=== PATIENT | male | born 1945 | race Caucasian/White ===

== ENCOUNTER 2017-10-07 20:51 | Observation (INO) | payer MEDICARE, BC ==
[2017-10-07] MEDS ORDERED: Sodium Chloride 0.9% 10 ML Syringe FLUSH PRN (21:11)
--- NOTE | 2017-10-07 21:21 | EDM.PDOC ---
ED HPI GENERAL MEDICAL PROBLEM - General Chief Complaint: General Stated Complaint: weak, left knee collapsed Time Seen by Provider: 10/07/17 21:02 Source of Information: Reports: Patient, Family History Limitations: Reports: No Limitations - History of Present Illness INITIAL COMMENTS - FREE TEXT/NARRATIVE: Patient reports falling at home. He states he has problems with his left knee and it collapsed on him. He did not hit his head or black out. He states he has been drinking today. He does have an extensive history of drinking 5 or more alcohol drinks. He prefers hard alcohol. Drinks whiskey, martinis, etc. Does not smoke or do drugs. He has a history of HTN and essential tremors. 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 Family is here with him. He reports no surgeries. Denies diabetes, cancer, copd or asthma, enlarged prostate. He denies chest pain, SOB, blood in urine or stool. He states he is having regular bowel and bladder movements. Denies headache, vision problems. Medical history obtained from [facility] records indicate Chronic sunus bradycardia, hypercholesterolemia, BPH, Q waves on EKG indicating prior PR, dmitriy with cpap use, thoracic aortic aneurysm, alcohol use, normal stress test. Medications include asa 81 mg, dyazide, 37.5/25 mg, vasotec 20 mg , hytrin 5 mg, mevacor 40 mg, mysoline 50 mg. Onset: Today, Sudden Location: Reports: Lower Extremity, Left Associated Symptoms: Reports: No Other Symptoms Left Knee Pain Score (Numeric/FACES): 3 - Related Data Allergies Allergy/AdvReac Type Severity Reaction Status Date / Time No Known Allergies Allergy Verified 10/07/17 20:58 Home Meds: Home Meds Aspirin [Halfprin] 81 mg PO DAILY 10/07/17 [History] Enalapril [Vasotec] 20 mg PO DAILY 10/07/17 [History] Lovastatin 1.5 tab PO BEDTIME 10/07/17 [History] Primidone 3 tab PO DAILY 10/07/17 [History] Terazosin [Hytrin] 1 cap PO BEDTIME 10/07/17 [History] Triamterene/Hydrochlorothiazid [Triamterene-HCTZ 37.5-25 MG] 1 tab PO DAILY [History] Social & Family History - Tobacco Use Smoking Status *Q: Never Smoker - Alcohol Use Days Per Week of Alcohol Use: 7 Number of Drinks Per Day: 7 Total Drinks Per Week: 49 - Recreational Drug Use Recreational Drug Use: No ED ROS GENERAL - Review of Systems Review Of Systems: See Below Constitutional: Reports: No Symptoms HEENT: Reports: No Symptoms Respiratory: Reports: No Symptoms Cardiovascular: Reports: No Symptoms Endocrine: Reports: No Symptoms GI/Abdominal: Reports: No Symptoms : Reports: No Symptoms Musculoskeletal: Reports: Other (weak left knee) Skin: Reports: No Symptoms Neurological: Reports: Weakness Psychiatric: Reports: No Symptoms Hematologic/Lymphatic: Reports: No Symptoms Immunologic: Reports: No Symptoms ED EXAM, GENERAL - Physical Exam Exam: See Below Exam Limited By: Intoxication General Appearance: Alert, WD/WN, No Apparent Distress Eye Exam: Bilateral Eye: EOMI, Normal Inspection, PERRL Ears: Normal TMs Nose: Normal Inspection, Normal Mucosa, No Blood Throat/Mouth: Normal Inspection, Normal Lips, Normal Teeth, Normal Gums, Normal Oropharynx, Normal Voice, No Airway Compromise Head: Atraumatic, Normocephalic Neck: Normal Inspection, Supple, Non-Tender, Full Range of Motion Respiratory/Chest: No Respiratory Distress, Lungs Clear, Normal Breath Sounds, No Accessory Muscle Use, Chest Non-Tender, Other (does have bradycardia which is normal for him, rates in the 40-50s) Cardiovascular: Normal Peripheral Pulses, Regular Rate, Rhythm, No Edema, No Gallop, No JVD, No Murmur, No Rub Peripheral Pulses: 2+: Posterior Tibial (L), Posterior Tibial (R), Dorsalis Pedis (L), Dorsalis Pedis (R) GI/Abdominal: Normal Bowel Sounds, Soft, Non-Tender, No Organomegaly, No Distention, No Abnormal Bruit, No Mass Extremities: Normal Inspection, Normal Range of Motion, Non-Tender, No Pedal Edema, Normal Capillary Refill, Other (varus, valgus, anterior drawer test negative) Neurological: Alert, Oriented, CN II-XII Intact, Normal Cognition, Normal Gait, Normal Reflexes, No Motor/Sensory Deficits Psychiatric: Normal Affect, Normal Mood Skin Exam: Warm, Dry, Intact, Normal Color, No Rash Lymphatic: No Adenopathy Course - Vital Signs Last Recorded V/S: Last Vital Signs Temp 36.5 C 10/07/17 22:05 Pulse 41 L 10/07/17 22:05 Resp 16 10/07/17 22:05 BP 169/100 H 10/07/17 22:05 Pulse Ox 96 10/07/17 22:05 - Orders/Labs/Meds Orders: Active Orders 24 hr Category Date Time Status Patient Status [ADT] Routine ADT 10/07/17 21:56 Active Knee 1V or 2V Lt [CR] Stat Exams 10/07/17 21:11 Taken Sodium Chloride 0.9% [Normal Saline] 1,000 ml Med 10/07/17 21:15 Active IV ASDIRECTED Sodium Chloride 0.9% [Saline Flush] Med 10/07/17 21:11 Active 10 ml FLUSH ASDIRECTED PRN Saline Lock Insert [OM.PC] Routine Oth 10/07/17 21:11 Ordered Medication Orders Sodium Chloride (Normal Saline) 1,000 mls @ 150 mls/hr IV ASDIRECTED YRIS Last Admin: 10/07/17 21:35 Dose: 150 mls/hr Sodium Chloride (Saline Flush) 10 ml FLUSH ASDIRECTED PRN PRN Reason: Keep Vein Open Labs: Laboratory Tests 10/07/17 10/07/17 Range/Units 21:33 21:33 WBC 5.9 (4.0-10.0) x10^3/uL RBC 4.01 L (4.5-6.0) x10^6/uL Hgb 13.7 L (14.0-18.0) g/dL Hct 40.1 (40.0-52.0) % MCV 100.0 H (78.0-93.0) fL MCH 34.2 H (26.0-32.0) pg MCHC 34.2 (32.0-36.0) g/dL RDW Coeff of James 12.4 (10.0-15.0) % Plt Count 212 (130-400) x10^3/uL Neut % (Auto) 57.2 (50.0-80.0) % Lymph % (Auto) 32.0 (25.0-50.0) % [place] % (Auto) 7.6 (2.0-11.0) % Eos % (Auto) 2.9 (0.0-4.0) % Baso % (Auto) 0.3 (0.2-1.2) % Sodium 139 (136-145) mmol/L Potassium 3.8 (3.5-5.1) mmol/L Chloride 104 (98-107) mmol/L Carbon Dioxide 24 (21-32) mmol/L Anion Gap 14.8 BUN 16 (7-18) mg/dL Creatinine 1.0 (0.70-1.30) mg/dL Est Cr Clr Drug Dosing 81.06 mL/min Estimated GFR (MDRD) > 60 Glucose 101 (74-106) mg/dL Calcium 8.3 L (8.5-10.1) mg/dL Corrected Calcium 8.94 (8.5-10.1) mg/dL Total Bilirubin 0.3 (0.2-1.0) mg/dL AST 20 (15-37) U/L ALT 21 (16-63) U/L Alkaline Phosphatase 87 (46-116) U/L Troponin I < 0.017 (<=0.056) ng/mL NT-Pro-B Natriuret Pep 84 (<=125) pg/mL Total Protein 7.2 (6.4-8.2) g/dL Albumin 3.2 L (3.4-5.0) g/dL Globulin 4.0 Albumin/Globulin Ratio 0.80 Amylase 47 (25-115) U/L Ethyl Alcohol 198 H (0-3) mg/dL Meds: Medications Generic Name Dose Route Start Last Admin Trade Name Freq PRN Reason Stop Dose Admin Sodium Chloride 1,000 mls @ 150 mls/hr 10/07/17 21:15 10/07/17 21:35 Normal Saline IV 150 mls/hr ASDIRECTED YRIS Administration Sodium Chloride 10 ml 10/07/17 21:11 Saline Flush FLUSH ASDIRECTED PRN Keep Vein Open - Re-Assessments/Exams Free Text/Narrative Re-Assessment/Exam: 10/07/17 23:34 Will admit to observation for detox and to determine his ambulate once sober. Departure - Departure Time of Disposition: 21:56 Disposition: Refer to Observation Condition: Good Clinical Impression: Alcohol intoxication, Knee buckling - Discharge Information - My Orders Last 24 Hours: My Active Orders 10/07/17 21:11 Knee 1V or 2V Lt [CR] Stat Sodium Chloride 0.9% [Saline Flush] 10 ml FLUSH ASDIRECTED PRN Saline Lock Insert [OM.PC] Routine 10/07/17 21:15 Sodium Chloride 0.9% [Normal Saline] 1,000 ml IV ASDIRECTED 10/07/17 21:56 Patient Status [ADT] Routine - Assessment/Plan Last 24 Hours: My Active Orders 10/07/17 21:11 Knee 1V or 2V Lt [CR] Stat Sodium Chloride 0.9% [Saline Flush] 10 ml FLUSH ASDIRECTED PRN Saline Lock Insert [OM.PC] Routine 10/07/17 21:15 Sodium Chloride 0.9% [Normal Saline] 1,000 ml IV ASDIRECTED 10/07/17 21:56 Patient Status [ADT] Routine
[2017-10-07] MEDS: Sodium Chloride 0.9% 1,000 ML IV SCH (21:35)
[2017-10-07 22:07] LABS: CHLORIDE,CL 104 mmol/L (98-107); SODIUM,NA 139 mmol/L (136-145)
[2017-10-08] MEDS: Sodium Chloride 0.9% 1,000 ML IV SCH ×2 (04:08→10:41)
[2017-10-08] MEDS: Ibuprofen 200 MG Tab PO PRN ×3 (06:29→20:36)
[2017-10-08] MEDS ORDERED: Morphine 4 MG/ML Syringe IVPUSH ONE (13:54)
[2017-10-08] MEDS: Acetaminophen/HYDROcodone 325-10 MG Tab PO PRN ×2 (14:09→22:10)
[2017-10-08] MEDS ORDERED: Non-Formulary Medication 1 Each (Triamterene/Hydrochlorothiazid [Triamterene-Hctz 37.5-25 PO SCH (21:15)
[2017-10-08] MEDS ORDERED: Primidone 50 MG Tab PO SCH (21:15)
[2017-10-08] MEDS ORDERED: [UNRECOGNIZED DRUG - OTHER] PO SCH (21:15)
[2017-10-08] MEDS: Aspirin 81 MG Tab.EC PO SCH (22:10)
[2017-10-09] MEDS: Acetaminophen/HYDROcodone 325-10 MG Tab PO PRN (08:00)
[2017-10-09] MEDS: Aspirin 81 MG Tab.EC PO SCH (08:00)
--- NOTE | 2017-10-09 08:33 | PCM.DCSUM1 ---
Discharge Summary - Hospital Course HPI Initial Comments: Patient admitted for alcohol intoxication and left knee pain and weakness. He had fallen and was unable to ambulate. This happened Monday night. - Discharge Data Discharge Date: 10/09/17 Discharge Disposition: Home, Self-Care 01 Condition: Good - Patient Summary/Data Recommended Follow-up Testing/Procedures: I do recommend follow up with your primary doctor as well as with orthopedic specialists to determine what is happening with your knee. Hospital Course: Patient admitted Monday night to observation. X-ray of left knee showed no fracture but did indicate an anterior fragment within the knee. He was unwilling to walk yesterday, so I did prescribe the use of an immobilizer for the left knee as well as some pain medications. - Patient Instructions Diet: Usual Diet as Tolerated Activity: Apply Ice, As Tolerated, Elevate Extremity Driving: May Drive Today Showering/Bathing: May Shower - Discharge Plan Home Medications: Home Meds Aspirin [Halfprin] 81 mg PO DAILY 10/07/17 [History] Enalapril [Vasotec] 20 mg PO DAILY 10/07/17 [History] [place] Seed [[place]] 300 mg PO DAILY 10/07/17 [History] Lovastatin 1.5 tab PO BEDTIME 10/07/17 [History] Primidone 3 tab PO DAILY 10/07/17 [History] Terazosin [Hytrin] 1 cap PO BEDTIME 10/07/17 [History] Triamterene/Hydrochlorothiazid [Triamterene-HCTZ 37.5-25 MG] 1 tab PO DAILY [History] Forms: ED Department Discharge Referrals: Wade Larkin MD [Primary Care Provider] - - Discharge Summary/Plan Comment DC Time >30 min.: Yes Discharge Summary/Plan Comment: Follow up with your primary as needed. Schedule an appointment with orthopedic for additional testing. Take the hydrocodone as needed for pain. Wear the immobilizer when you are walking. Utilize your walker as well. Call the hospital if you have any questions or concerns. - Patient Data Vitals - Most Recent: Last Vital Signs Temp 36.8 C 10/09/17 06:00 Pulse 50 L 10/09/17 06:00 Resp 19 10/09/17 06:00 BP 149/88 H 10/09/17 06:00 Pulse Ox 98 10/09/17 08:13 Weight - Most Recent: 131.542 kg I&O - Last 24 hours: Intake & Output 10/08/17 10/09/17 10/09/17 22:59 06:59 14:59 Intake Total 2940 680 360 Output Total 600 750 Balance 2340 -70 360 Med Orders - Current: Current Medications Hydrocodone Bitart/Acetaminophen ([place] 325-10 Mg) 1 tab PO Q4H PRN PRN Reason: Pain Last Admin: 10/09/17 08:00 Dose: 1 tab Aspirin (Halfprin) 81 mg PO DAILY YRIS Last Admin: 10/09/17 08:00 Dose: 81 mg Enalapril Maleate (Vasotec) 20 mg PO DAILY YRIS Ibuprofen (Motrin) 600 mg PO Q6H PRN PRN Reason: Pain/Fever Last Admin: 10/08/17 20:36 Dose: 600 mg Non-Formulary Medication ([place] Seed [[place]]) 300 mg PO DAILY YRIS Non-Formulary Medication (Lovastatin [Lovastatin]) 1.5 tab PO BEDTIME YRIS Non-Formulary Medication (Terazosin [Hytrin]) 1 cap PO BEDTIME YRIS Non-Formulary Medication (Triamterene/Hydrochlorothiazid [Triamterene-Hctz 37.5- 25 Mg]) 1 tab PO DAILY YRIS Primidone (Mysoline) mg PO DAILY YRIS Sodium Chloride (Saline Flush) 10 ml FLUSH ASDIRECTED PRN PRN Reason: Keep Vein Open Last Admin: 10/08/17 20:31 Dose: 10 ml Discontinued Medications Sodium Chloride (Normal Saline) 1,000 mls @ 150 mls/hr IV ASDIRECTED YRIS Last Admin: 10/08/17 10:41 Dose: 150 mls/hr Morphine Sulfate (Morphine) 4 mg IVPUSH ONETIME ONE Stop: 10/08/17 13:55 Last Admin: 10/08/17 14:05 Dose: 4 mg
[2017-10-09] MEDS ORDERED: TERAZOSIN PO SCH (20:00)
[2017-10-09] MEDS ORDERED: LOVASTATIN PO SCH (20:00)
== END 2017-10-09 09:35 | disposition home or self-care (01) ==
LOC: VM.ED 20:51 → VM.MS 21:56
PROVIDERS: ADMIT Nurse Practitioner Family; ATTEND Nurse Practitioner Family
DX: F10.129 Alcohol abuse with intoxication, unspecified (principal); M62.81 Muscle weakness (generalized); Z79.82 Long term (current) use of aspirin; Z79.899 Other long term (current) drug therapy
CPT/HCPCS: 36415; 73560; 80053; 82150; 83880; 84484; 85025; 93005; 94760; 96365; 99217; 99220; 99284; 99285; A9270; G0480; J2270; J7030; J7050

== ENCOUNTER 2017-10-14 12:26 | Emergency (ER) | payer MEDICARE, BC ==
--- NOTE | 2017-10-14 12:54 | EDM.PDOC ---
ED HPI GENERAL MEDICAL PROBLEM - General Chief Complaint: Genitourinary Problem Stated Complaint: URINARY PROBLEMS Time Seen by Provider: 10/14/17 12:38 Source of Information: Reports: Patient, Family History Limitations: Reports: No Limitations - History of Present Illness INITIAL COMMENTS - FREE TEXT/NARRATIVE: Patient was recently admitted last week with left knee weakness. On his discharge was seen in [place] at the Orthopedic walk in clinic and found to have a torn quadracept muscle. This was repaired on Monday. After discharge he was urinating without difficulty. However late yesterday he started to develop burning, frequency, lack of emptying when he does go. Slight fever. He is also slightly tachycardic, however he did have to expend a lot of energy to get to the ER due to his non weight bearing status on his left leg. Onset: Gradual Onset Date: 10/13/17 Duration: Getting Worse Severity: Moderate Associated Symptoms: Reports: Fever/Chills Left Knee Pain Score (Numeric/FACES): 3 - Related Data Allergies Allergy/AdvReac Type Severity Reaction Status Date / Time No Known Allergies Allergy Verified 10/14/17 13:02 Home Meds: Home Meds Aspirin [Halfprin] 81 mg PO DAILY 10/07/17 [History] Enalapril [Vasotec] 20 mg PO DAILY 10/07/17 [History] [place] Seed [[place]] 300 mg PO DAILY 10/07/17 [History] Lovastatin 1.5 tab PO BEDTIME 10/07/17 [History] Primidone 3 tab PO DAILY 10/07/17 [History] Terazosin [Hytrin] 1 cap PO BEDTIME 10/07/17 [History] Triamterene/Hydrochlorothiazid [Triamterene-HCTZ 37.5-25 MG] 1 tab PO DAILY [History] Lactulose 15 ml TID 10/14/17 [History] oxyCODONE 5 mg Q4H PRN 10/14/17 [History] traMADol HCl [Tramadol HCl] 100 mg Q6H 10/14/17 [History] Past Medical History HEENT History: Reports: Cataract, Impaired Vision Respiratory History: Reports: Sleep Apnea Psychiatric History: Reports: Addiction - Past Surgical History HEENT Surgical History: Reports: Tonsillectomy Cardiovascular Surgical History: Reports: Aneurysm Social & Family History - Family History Family Medical History: Noncontributory - Tobacco Use Smoking Status *Q: Never Smoker Second Hand Smoke Exposure: No - Caffeine Use Caffeine Use: Reports: None - Alcohol Use Days Per Week of Alcohol Use: 7 Number of Drinks Per Day: 7 Total Drinks Per Week: 49 - Recreational Drug Use Recreational Drug Use: No ED ROS GENERAL - Review of Systems Review Of Systems: See Below Constitutional: Reports: Fever HEENT: Reports: No Symptoms Respiratory: Reports: No Symptoms Cardiovascular: Reports: No Symptoms Endocrine: Reports: No Symptoms GI/Abdominal: Reports: No Symptoms : Reports: Dysuria, Frequency, Urinary Retention Musculoskeletal: Reports: Leg Pain (left knee) Skin: Reports: No Symptoms Neurological: Reports: No Symptoms Psychiatric: Reports: No Symptoms ED EXAM, RENAL/ - Physical Exam Exam: See Below Exam Limited By: No Limitations General Appearance: Alert, WD/WN, Mild Distress Eye Exam: Bilateral Eye: EOMI, Normal Inspection, PERRL Head: Atraumatic, Normocephalic Neck: Normal Inspection, Supple, Non-Tender, Full Range of Motion Respiratory/Chest: No Respiratory Distress, Lungs Clear, Normal Breath Sounds, No Accessory Muscle Use, Chest Non-Tender Cardiovascular: Normal Peripheral Pulses, Regular Rate, Rhythm, No Edema, No Gallop, No JVD, No Murmur, No Rub GI/Abdominal: Normal Bowel Sounds, Soft, Non-Tender, No Organomegaly, No Distention, No Abnormal Bruit, No Mass Extremities: Limited Range of Motion (left leg is wrapped in compression dressing) Neurological: Alert, Oriented, CN II-XII Intact, Normal Cognition, Normal Gait, Normal Reflexes, No Motor/Sensory Deficits Psychiatric: Normal Affect, Normal Mood Skin Exam: Warm, Dry, Intact, Normal Color, No Rash Lymphatic: No Adenopathy Course - Vital Signs Last Recorded V/S: Last Vital Signs Temp 37.9 C 10/14/17 12:26 Pulse 93 10/14/17 12:50 Resp 18 10/14/17 12:26 BP 156/89 H 10/14/17 12:50 Pulse Ox - Orders/Labs/Meds Orders: Active Orders 24 hr Category Date Time Status Day Catheter Insertion [Insert Urinary Catheter] [OM. Care 10/14/17 13:30 Ordered PC] Q24H Urinary Catheter Assessment [RC] ASDIRECTED Care 10/14/17 13:26 Active CULTURE BLOOD [BC] Stat Lab 10/14/17 13:01 Ordered CULTURE BLOOD [BC] Stat Lab 10/14/17 13:01 Ordered CULTURE URINE [RM] Stat Lab 10/14/17 12:39 Received UA W/MICROSCOPIC [URIN] Stat Lab 10/14/17 12:39 Ordered Blood Culture x2 Reflex Set [OM.PC] Stat Oth 10/14/17 13:01 Ordered Saline Lock Insert [OM.PC] Routine Oth 10/14/17 13:01 Ordered Labs: Laboratory Tests 10/14/17 10/14/17 10/14/17 Range/Units 12:39 13:05 13:05 WBC 9.1 (4.0-10.0) x10^3/uL RBC 3.65 L (4.5-6.0) x10^6/uL Hgb 12.5 L (14.0-18.0) g/dL Hct 35.9 L (40.0-52.0) % MCV 98.4 H (78.0-93.0) fL MCH 34.2 H (26.0-32.0) pg MCHC 34.8 (32.0-36.0) g/dL RDW Coeff of James 12.0 (10.0-15.0) % Plt Count 239 (130-400) x10^3/uL Neut % (Auto) 78.8 (50.0-80.0) % Lymph % (Auto) 8.0 L (25.0-50.0) % [place] % (Auto) 12.7 H (2.0-11.0) % Eos % (Auto) 0.3 (0.0-4.0) % Baso % (Auto) 0.2 (0.2-1.2) % Sodium 136 (136-145) mmol/L Potassium 3.9 (3.5-5.1) mmol/L Chloride 100 (98-107) mmol/L Carbon Dioxide 25 (21-32) mmol/L Anion Gap 14.9 (10-20) mmol/L BUN 19 H (7-18) mg/dL Creatinine 1.0 (0.70-1.30) mg/dL Est Cr Clr Drug Dosing 81.06 mL/min Estimated GFR (MDRD) > 60 Glucose 115 H (74-106) mg/dL Lactic Acid (0.4-2.0) mmol/L Uric Acid (3.5-7.2) mg/dL Calcium 8.6 (8.5-10.1) mg/dL Corrected Calcium 9.64 (8.5-10.1) mg/dL Total Bilirubin 0.7 (0.2-1.0) mg/dL AST 22 (15-37) U/L ALT 16 (16-63) U/L Alkaline Phosphatase 76 (46-116) U/L C-Reactive Protein 20.0 H (<=0.9) mg/dL Total Protein 7.0 (6.4-8.2) g/dL Albumin 2.7 L (3.4-5.0) g/dL Globulin 4.3 Albumin/Globulin Ratio 0.63 Urine Color Yellow (YELLOW) Urine Appearance Slightly cloudy H (CLEAR) Urine pH 7.0 (5.0-8.0) Ur Specific [place] 1.015 Urine Protein Negative (NEGATIVE) mg/dL Urine Glucose (UA) Negative (NEGATIVE) mg/dL Urine Ketones 15 H (NEGATIVE) mg/dL Urine Occult Blood Negative (NEGATIVE) Urine Nitrite Negative (NEGATIVE) Urine Bilirubin Negative (NEGATIVE) Urine Urobilinogen 1.0 (0.2) EU/dL Ur Leukocyte Esterase Negative (NEGATIVE) Urine RBC 0-5 (NOT SEEN) /HPF Urine WBC 0-5 (NOT SEEN) /HPF Ur Squamous Epith Cells Not seen (NEGATIVE) /HPF Urine Bacteria Rare (NEGATIVE) /HPF Urine Mucus Few H (NEGATIVE) /LPF 10/14/17 10/14/17 Range/Units 13:05 13:05 WBC (4.0-10.0) x10^3/uL RBC (4.5-6.0) x10^6/uL Hgb (14.0-18.0) g/dL Hct (40.0-52.0) % MCV (78.0-93.0) fL MCH (26.0-32.0) pg MCHC (32.0-36.0) g/dL RDW Coeff of James (10.0-15.0) % Plt Count (130-400) x10^3/uL Neut % (Auto) (50.0-80.0) % Lymph % (Auto) (25.0-50.0) % [place] % (Auto) (2.0-11.0) % Eos % (Auto) (0.0-4.0) % Baso % (Auto) (0.2-1.2) % Sodium (136-145) mmol/L Potassium (3.5-5.1) mmol/L Chloride (98-107) mmol/L Carbon Dioxide (21-32) mmol/L Anion Gap (10-20) mmol/L BUN (7-18) mg/dL Creatinine (0.70-1.30) mg/dL Est Cr Clr Drug Dosing mL/min Estimated GFR (MDRD) Glucose (74-106) mg/dL Lactic Acid 1.4 (0.4-2.0) mmol/L Uric Acid 5.8 (3.5-7.2) mg/dL Calcium (8.5-10.1) mg/dL Corrected Calcium (8.5-10.1) mg/dL Total Bilirubin (0.2-1.0) mg/dL AST (15-37) U/L ALT (16-63) U/L Alkaline Phosphatase (46-116) U/L C-Reactive Protein (<=0.9) mg/dL Total Protein (6.4-8.2) g/dL Albumin (3.4-5.0) g/dL Globulin Albumin/Globulin Ratio Urine Color (YELLOW) Urine Appearance (CLEAR) Urine pH (5.0-8.0) Ur Specific [place] Urine Protein (NEGATIVE) mg/dL Urine Glucose (UA) (NEGATIVE) mg/dL Urine Ketones (NEGATIVE) mg/dL Urine Occult Blood (NEGATIVE) Urine Nitrite (NEGATIVE) Urine Bilirubin (NEGATIVE) Urine Urobilinogen (0.2) EU/dL Ur Leukocyte Esterase (NEGATIVE) Urine RBC (NOT SEEN) /HPF Urine WBC (NOT SEEN) /HPF Ur Squamous Epith Cells (NEGATIVE) /HPF Urine Bacteria (NEGATIVE) /HPF Urine Mucus (NEGATIVE) /LPF Meds: Medications Discontinued Medications Generic Name Dose Route Start Last Admin Trade Name Freq PRN Reason Stop Dose Admin Ceftriaxone Sodium 2 gm 10/14/17 13:01 10/14/17 13:30 Rocephin IVPUSH 10/14/17 13:02 2 gm ONETIME ONE Administration Lactated Ringer's 1,000 mls @ 999 mls/hr 10/14/17 13:15 10/14/17 13:37 Ringers, Lactated IV 999 mls/hr ASDIRECTED YRIS Administration Sodium Chloride 10 ml 10/14/17 13:01 10/14/17 13:36 Saline Flush FLUSH 10 ml ASDIRECTED PRN Administration Keep Vein Open Trimethoprim/Sulfamethoxazole 1 packet 10/14/17 13:48 10/14/17 14:30 Take Home: Sulfameth/Trimet 800-160mg, 2 Pack PO 10/14/17 13:49 1 packet ONETIME ONE Administration - Re-Assessments/Exams Free Text/Narrative Re-Assessment/Exam: 10/14/17 13:21 Bladder was scanned for 949 mL. Catheter was placed and urine sample taken. Urine is largely negative, but with ketones in his urine, burning, frequency, blood, urinary retention will treat for UTI. Departure - Departure Time of Disposition: 14:46 Disposition: Home, Self-Care 01 Condition: Good Clinical Impression: UTI, Urinary tract infectious disease, Retention of urine - Discharge Information Instructions: Day Catheter Care, Adult, Urinary Tract Infection, Adult, Easy- to-Read Referrals: Wdae Larkin MD [Primary Care Provider] - Forms: ED Department Discharge Additional Instructions: Follow up in the clinic Monday to have the catheter removed. You did have over 900 mL in your bladder when it was scanned. I treating you for a UTI due to your symptoms. Will prescribe bactrim 160/800 mg twice a day for 7 days. Stay well hydrated and drink more fluids. If you have any additional questions or concerns, please call us. - Problem List & Annotations (1) Retention of urine SNOMED Code(s): 417661079 Code(s): R33.9 - RETENTION OF URINE, UNSPECIFIED Status: Acute Priority: Low (2) UTI, Urinary tract infectious disease SNOMED Code(s): 32851004 Code(s): N39.0 - URINARY TRACT INFECTION, SITE NOT SPECIFIED Status: Acute Priority: Low - Problem List Review Problem List Initiated/Reviewed/Updated: Yes - My Orders Last 24 Hours: My Active Orders 10/14/17 12:39 CULTURE URINE [RM] Stat UA W/MICROSCOPIC [URIN] Stat 10/14/17 13:01 CULTURE BLOOD [BC] Stat CULTURE BLOOD [BC] Stat Blood Culture x2 Reflex Set [OM.PC] Stat Saline Lock Insert [OM.PC] Routine 10/14/17 13:26 Urinary Catheter Assessment [RC] ASDIRECTED 10/14/17 13:30 Day Catheter Insertion [Insert Urinary Catheter] [OM.PC] Q24H - Assessment/Plan Last 24 Hours: My Active Orders 10/14/17 12:39 CULTURE URINE [RM] Stat UA W/MICROSCOPIC [URIN] Stat 10/14/17 13:01 CULTURE BLOOD [BC] Stat CULTURE BLOOD [BC] Stat Blood Culture x2 Reflex Set [OM.PC] Stat Saline Lock Insert [OM.PC] Routine 10/14/17 13:26 Urinary Catheter Assessment [RC] ASDIRECTED 10/14/17 13:30 Day Catheter Insertion [Insert Urinary Catheter] [OM.PC] Q24H Assessment:: urinary tract infection Plan: Follow up in the clinic Monday to have the catheter removed. You did have over 900 mL in your bladder when it was scanned. I treating you for a UTI due to your symptoms. Will prescribe bactrim 160/800 mg twice a day for 7 days. Stay well hydrated and drink more fluids. If you have any additional questions or concerns, please call us.
[2017-10-14] MEDS ORDERED: cefTRIAXone 2 GM Vial IVPUSH ONE (13:01)
[2017-10-14] MEDS ORDERED: Sodium Chloride 0.9% 10 ML Syringe FLUSH PRN (13:01)
[2017-10-14] MEDS ORDERED: Lactated Ringers 1,000 ML IV SCH (13:15)
[2017-10-14] MEDS ORDERED: Take Home: Sulfamethoxazole/Trimethoprim 800-160 MG Tab, 2 Tab Pack PO ONE (13:48)
[2017-10-14 13:57] LABS: CHLORIDE,CL 100 mmol/L (98-107); SODIUM,NA 136 mmol/L (136-145)
== END 2017-10-14 14:40 | disposition home or self-care (01) ==
LOC: VM.ED 12:26
DX: N39.0 Urinary tract infection, site not specified (principal); Z79.82 Long term (current) use of aspirin; Z79.899 Other long term (current) drug therapy
CPT/HCPCS: 36415; 51702; 51798; 80053; 81001; 83605; 84550; 85025; 86140; 87040; 87086; 96361; 96374; 99283; 99284-GF; A9270-GY; J0696; J7050; J7120

== ENCOUNTER 2017-10-17 07:53 | Emergency (ER) | payer MEDICARE, BC ==
--- NOTE | 2017-10-17 08:31 | EDM.PDOC ---
ED HPI GENERAL MEDICAL PROBLEM - General Chief Complaint: Genitourinary Problem Stated Complaint: unable to void Time Seen by Provider: 10/17/17 08:10 Source of Information: Reports: Patient, Family, RN, RN Notes Reviewed History Limitations: Reports: No Limitations - History of Present Illness INITIAL COMMENTS - FREE TEXT/NARRATIVE: Patient presents to the ED at [facility] complaining of urinary retention. Patient was originally seen in the ER last Monday and had a catheter placed. The patient was then seen by his PCP yesterday who felt it was ok to removed the catheter. The patient states this morning he has not voided since yesterday around 1pm. He is very uncomfortable and feels his bladder is full. Patient is currently taking Bactrim. Onset Date: 10/12/17 - Related Data Allergies Allergy/AdvReac Type Severity Reaction Status Date / Time No Known Allergies Allergy Verified 10/14/17 13:02 Home Meds: Home Meds Aspirin [Halfprin] 81 mg PO DAILY 10/07/17 [History] Enalapril [Vasotec] 20 mg PO DAILY 10/07/17 [History] Horse [place] Seed [Horse [place]] 300 mg PO DAILY 10/07/17 [History] Lovastatin 1.5 tab PO BEDTIME 10/07/17 [History] Primidone 3 tab PO DAILY 10/07/17 [History] Terazosin [Hytrin] 1 cap PO BEDTIME 10/07/17 [History] Triamterene/Hydrochlorothiazid [Triamterene-HCTZ 37.5-25 MG] 1 tab PO DAILY [History] Lactulose 15 ml TID 10/14/17 [History] oxyCODONE 5 mg Q4H PRN 10/14/17 [History] traMADol HCl [Tramadol HCl] 100 mg Q6H 10/14/17 [History] Past Medical History HEENT History: Reports: Cataract, Impaired Vision Respiratory History: Reports: Sleep Apnea Psychiatric History: Reports: Addiction - Past Surgical History HEENT Surgical History: Reports: Tonsillectomy Cardiovascular Surgical History: Reports: Aneurysm Social & Family History - Family History Family Medical History: Noncontributory - Tobacco Use Smoking Status *Q: Never Smoker Second Hand Smoke Exposure: No - Caffeine Use Caffeine Use: Reports: None - Alcohol Use Days Per Week of Alcohol Use: 7 Number of Drinks Per Day: 7 Total Drinks Per Week: 49 - Recreational Drug Use Recreational Drug Use: No ED ROS GENERAL - Review of Systems Review Of Systems: See Below Constitutional: Denies: Fever, Chills, Weakness Respiratory: Denies: Shortness of Breath, Cough Cardiovascular: Denies: Chest Pain, Palpitations GI/Abdominal: Denies: Abdominal Pain, Nausea, Vomiting : Reports: Pain, Urinary Retention Skin: Reports: No Symptoms Neurological: Reports: No Symptoms ED EXAM, RENAL/ - Physical Exam Exam: See Below Exam Limited By: No Limitations General Appearance: Alert, No Apparent Distress Respiratory/Chest: No Respiratory Distress, Lungs Clear, Normal Breath Sounds Cardiovascular: Normal Peripheral Pulses, Regular Rate, Rhythm GI/Abdominal: Normal Bowel Sounds, Soft, Non-Tender (Male) Exam: Deferred Neurological: Alert, Oriented Skin Exam: Warm, Dry, Intact, Normal Color Departure - Departure Time of Disposition: 08:31 Disposition: Home, Self-Care 01 Condition: Good Clinical Impression: Acute urinary retention, Encounter for Day catheter replacement - Discharge Information Instructions: Acute Urinary Retention, Male, Day Catheter Care, Adult Referrals: Wade Larkin MD [Primary Care Provider] - Forms: ED Department Discharge Additional Instructions: 1. Stay well hydrated and rest 2. May stop taking Lactulose and continue with MiraLax 3. Will leave catheter in place until seen by Dr. Larkin this 4. Call with any questions or concerns 5. Continue taking Bactrim for the full coarse - Problem List Review Problem List Initiated/Reviewed/Updated: Yes - Assessment/Plan Assessment:: Urinary Retention Plan: Day catheter was re-inserted today. Will leave in place until patient is seen by his PCP this . Also, patient is requesting to stop taking the Lactulose as his stools are very loose. He will continue MiraLax.
== END 2017-10-17 08:35 | disposition home or self-care (01) ==
LOC: VM.ED 07:53
DX: R33.9 Retention of urine, unspecified (principal); Z46.6 Encounter for fitting and adjustment of urinary device; Z79.82 Long term (current) use of aspirin; Z79.899 Other long term (current) drug therapy
CPT/HCPCS: 99283; 99283-GF

== ENCOUNTER 2017-10-30 10:45 | Emergency (ER) | payer MEDICARE, BC ==
[2017-10-30] MEDS ORDERED: Sodium Chloride 0.9% 10 ML Syringe FLUSH PRN (10:56)
[2017-10-30 12:22] LABS: CHLORIDE,CL 102 mmol/L (98-107); SODIUM,NA 137 mmol/L (136-145)
[2017-10-30] MEDS ORDERED: Iopamidol 612 MG/ML 100 ML Bottle IVPUSH ONE (12:40)
--- NOTE | 2017-10-30 12:47 | EDM.PDOC ---
ED HPI GENERAL MEDICAL PROBLEM - General Chief Complaint: Syncope Stated Complaint: ER Time Seen by Provider: 10/30/17 10:48 Source of Information: Reports: Patient, EMS Notes Reviewed, Family, RN, RN Notes Reviewed History Limitations: Reports: No Limitations - History of Present Illness INITIAL COMMENTS - FREE TEXT/NARRATIVE: Patient is brought to the emergency room at [facility] via EMS for syncopal symptoms. The patient had left lower extremity surgery a couple of weeks ago and had issues with urinary retention, therefore he has a indwelling catheter. According to the EMS crew the patient has been having issues over the past couple of days with dizziness, syncope, and low blood pressure. The patient was up using the restroom this morning and after his bowel movement he had a significant drop of his blood pressure. The patient was given 500 mL of normal saline in route to the emergency room the patient does not complain of any pain. The patient complains of shortness of breath. The patient denies any chest pain. The patient feels very anxious. The patient denies any focal neurological deficit. The patient does not have any abdominal pain. The patient does have a Dya catheter in place. The patient's is very concerned about the left lower extremity as it seems more swollen than usual after his surgery. The patient doesn't complain of any pain of the left lower extremity he states he has some calf pain when he ambulates. Otherwise he states the left lower extremity is comfortable. Onset: Gradual Duration: Waxing/Waning - Related Data Allergies Allergy/AdvReac Type Severity Reaction Status Date / Time No Known Allergies Allergy Verified 10/30/17 12:04 Home Meds: Home Meds Aspirin [Halfprin] 81 mg PO DAILY 10/07/17 [History] Enalapril [Vasotec] 20 mg PO DAILY 10/07/17 [History] Horse [place] Seed [Horse [place]] 300 mg PO DAILY 10/07/17 [History] Lovastatin 1.5 tab PO BEDTIME 10/07/17 [History] Primidone 3 tab PO DAILY 10/07/17 [History] Terazosin [Hytrin] 1 cap PO BEDTIME 10/07/17 [History] Triamterene/Hydrochlorothiazid [Triamterene-HCTZ 37.5-25 MG] 1 tab PO DAILY [History] Lactulose 15 ml TID 10/14/17 [History] oxyCODONE 5 mg Q4H PRN 10/14/17 [History] traMADol HCl [Tramadol HCl] 100 mg PO BID 10/14/17 [History] Sulfamethoxazole/Trimethoprim [Bactrim Ds Tablet] 1 each PO BID 10/17/17 [ History] Past Medical History HEENT History: Reports: Cataract, Impaired Vision Respiratory History: Reports: Sleep Apnea Psychiatric History: Reports: Addiction - Past Surgical History HEENT Surgical History: Reports: Tonsillectomy Cardiovascular Surgical History: Reports: Aneurysm Musculoskeletal Surgical History: Reports: Other (See Below) Other Musculoskeletal Surgeries/Procedures:: tendon repair to L knee Social & Family History - Family History Family Medical History: Noncontributory - Tobacco Use Smoking Status *Q: Unknown Ever Smoked Second Hand Smoke Exposure: No - Caffeine Use Caffeine Use: Reports: None - Alcohol Use Days Per Week of Alcohol Use: 7 Number of Drinks Per Day: 7 Total Drinks Per Week: 49 - Recreational Drug Use Recreational Drug Use: No ED ROS GENERAL - Review of Systems Review Of Systems: See Below Constitutional: Reports: Weakness, Fatigue. Denies: Fever, Chills Respiratory: Reports: Shortness of Breath. Denies: Wheezing, Cough Cardiovascular: Reports: Dyspnea on Exertion, Edema, Lightheadedness. Denies: Chest Pain GI/Abdominal: Denies: Abdominal Pain, Nausea, Vomiting Musculoskeletal: Reports: No Symptoms Skin: Reports: No Symptoms Neurological: Reports: Dizziness, Paresthesia. Denies: Headache, Numbness, Tingling - Physical Exam Exam: See Below Exam Limited By: No Limitations General Appearance: Alert, Anxious, Mild Distress, Obese Eye Exam: Bilateral Eye: Normal Inspection, PERRL Head Exam: Atraumatic, Normocephalic Neck: Supple Respiratory/Chest: No Respiratory Distress, Lungs Clear, Decreased Breath Sounds Cardiovascular: Tachycardia, Irregularly Irregular, Other (+3 bilateral lower extremity dependent pitting edema) GI/Abdominal: Normal Bowel Sounds, Soft, Non-Tender Neuro Exam (Abbreviated): Alert, Oriented Skin Exam: Warm, Dry, Intact, Normal Color EKG INTERPRETATION EKG Date: 10/30/17 Time: 10:59 Rhythm: A-Fib Rate (Beats/Min): 103 Louann: Normal P-Wave: Absent QRS: Normal ST-T: Normal QT: Normal CT/PQ Interval: Absent Comparison: Change From Previous EKG EKG Interpretation Comments: 1. Atrial Flutter/Tachycardia with RVR 2. IVMI, probably old 3. Anteroseptal UT of indeterminate age Course - Vital Signs Last Recorded V/S: Last Vital Signs Temp 35.9 C 10/30/17 10:45 Pulse 96 10/30/17 13:19 Resp 18 10/30/17 13:19 BP 124/90 10/30/17 13:19 Pulse Ox 94 L 10/30/17 13:19 - Orders/Labs/Meds Orders: Active Orders 24 hr Category Date Time Status EKG 12 Lead [EKG Documentation Completion] [RC] STAT Care 10/30/17 10:56 Active Chest 1V Frontal [CR] Stat Exams 10/30/17 10:58 Taken Chest PE [Ang Chest] [CT] Stat Exams 10/30/17 12:25 Taken Head wo Cont [CT] Stat Exams 10/30/17 10:57 Taken Heparin Sodium/0.45% NaCl [Heparin 25,000 Units in 1/2 Med 10/30/17 13:45 Ordered NS 500 ML] 25,000 units in 500 ml IV TITRATE Sodium Chloride 0.9% [Saline Flush] Med 10/30/17 10:56 Active 10 ml FLUSH ASDIRECTED PRN Peripheral IV Insertion Adult [OM.PC] Routine Oth 10/30/17 10:56 Ordered Medication Orders Heparin Sodium/Sodium Chloride (Heparin 25,000 Units In 1/2 Ns 500 Ml) 25,000 units in 500 mls @ 2,267.96 mls/hr IV TITRATE YRIS; Protocol Sodium Chloride (Saline Flush) 10 ml FLUSH ASDIRECTED PRN PRN Reason: Keep Vein Open Labs: Laboratory Tests 10/30/17 10/30/17 10/30/17 Range/Units 11:23 11:23 11:23 WBC 12.2 H (4.0-10.0) x10^3/uL RBC 3.78 L (4.5-6.0) x10^6/uL Hgb 12.6 L (14.0-18.0) g/dL Hct 37.6 L (40.0-52.0) % MCV 99.5 H (78.0-93.0) fL MCH 33.3 H (26.0-32.0) pg MCHC 33.5 (32.0-36.0) g/dL RDW Coeff of James 12.4 (10.0-15.0) % Plt Count 397 D (130-400) x10^3/uL Neut % (Auto) 87.2 H (50.0-80.0) % Lymph % (Auto) 6.7 L (25.0-50.0) % [place] % (Auto) 5.7 (2.0-11.0) % Eos % (Auto) 0.2 (0.0-4.0) % Baso % (Auto) 0.2 (0.2-1.2) % PT 9.3 L (9.6-11.4) SEC INR 0.9 L (2.0-3.5) D-Dimer, Quantitative 26.93 H (<=0.58) mg/LFEU POC ABG pH (7.35-7.45) POC ABG pCO2 (35-45) mmHG POC ABG pO2 (80-105) mmHG POC ABG HCO3 (22-26) mmol/L POC ABG Total CO2 (23-27) mmol/L POC ABG O2 Sat (95-98) % POC ABG Base Excess (-2-3) mmol/L POC FiO2 Sodium 137 (136-145) mmol/L Potassium 4.0 (3.5-5.1) mmol/L Chloride 102 (98-107) mmol/L Carbon Dioxide 21 (21-32) mmol/L Anion Gap 18.0 (10-20) mmol/L BUN 20 H (7-18) mg/dL Creatinine 1.2 (0.70-1.30) mg/dL Est Cr Clr Drug Dosing TNP Estimated GFR (MDRD) > 60 Glucose 162 H (74-106) mg/dL Lactic Acid (0.4-2.0) mmol/L Calcium 8.6 (8.5-10.1) mg/dL Corrected Calcium 9.56 (8.5-10.1) mg/dL Total Bilirubin 0.5 (0.2-1.0) mg/dL AST 25 (15-37) U/L ALT 29 (16-63) U/L Alkaline Phosphatase 101 (46-116) U/L Creatine Kinase 38 L (39-308) U/L Troponin I 0.156 H* (<=0.056) ng/mL NT-Pro-B Natriuret Pep 1318 H (<=125) pg/mL Total Protein 7.5 (6.4-8.2) g/dL Albumin 2.8 L (3.4-5.0) g/dL Globulin 4.7 Albumin/Globulin Ratio 0.60 POC Result Comm Ethyl Alcohol (0-3) mg/dL 10/30/17 10/30/17 10/30/17 Range/Units 11:23 11:23 11:36 WBC (4.0-10.0) x10^3/uL RBC (4.5-6.0) x10^6/uL Hgb (14.0-18.0) g/dL Hct (40.0-52.0) % MCV (78.0-93.0) fL MCH (26.0-32.0) pg MCHC (32.0-36.0) g/dL RDW Coeff of James (10.0-15.0) % Plt Count (130-400) x10^3/uL Neut % (Auto) (50.0-80.0) % Lymph % (Auto) (25.0-50.0) % [place] % (Auto) (2.0-11.0) % Eos % (Auto) (0.0-4.0) % Baso % (Auto) (0.2-1.2) % PT (9.6-11.4) SEC INR (2.0-3.5) D-Dimer, Quantitative (<=0.58) mg/LFEU POC ABG pH 7.420 (7.35-7.45) POC ABG pCO2 29 L (35-45) mmHG POC ABG pO2 57 L* (80-105) mmHG POC ABG HCO3 19 L (22-26) mmol/L POC ABG Total CO2 20 L (23-27) mmol/L POC ABG O2 Sat 90 L (95-98) % POC ABG Base Excess -6 L (-2-3) mmol/L POC FiO2 0.32 Sodium (136-145) mmol/L Potassium (3.5-5.1) mmol/L Chloride (98-107) mmol/L Carbon Dioxide (21-32) mmol/L Anion Gap (10-20) mmol/L BUN (7-18) mg/dL Creatinine (0.70-1.30) mg/dL Est Cr Clr Drug Dosing Estimated GFR (MDRD) Glucose (74-106) mg/dL Lactic Acid 3.2 H* (0.4-2.0) mmol/L Calcium (8.5-10.1) mg/dL Corrected Calcium (8.5-10.1) mg/dL Total Bilirubin (0.2-1.0) mg/dL AST (15-37) U/L ALT (16-63) U/L Alkaline Phosphatase (46-116) U/L Creatine Kinase (39-308) U/L Troponin I (<=0.056) ng/mL NT-Pro-B Natriuret Pep (<=125) pg/mL Total Protein (6.4-8.2) g/dL Albumin (3.4-5.0) g/dL Globulin Albumin/Globulin Ratio POC Result Comm Called critical res Ethyl Alcohol < 3 (0-3) mg/dL Meds: Medications Generic Name Dose Route Start Last Admin Trade Name Freq PRN Reason Stop Dose Admin Heparin Sodium/Sodium Chloride 25,000 units in 500 mls @ 2,267.96 mls/hr 10/30 13:45 Heparin 25,000 Units In 1/2 Ns 500 Ml IV TITRATE YRIS Protocol 1,000 UNITS/KG/HR Sodium Chloride 10 ml 10/30/17 10:56 Saline Flush FLUSH ASDIRECTED PRN Keep Vein Open Discontinued Medications Generic Name Dose Route Start Last Admin Trade Name Freq PRN Reason Stop Dose Admin Heparin Sodium (Porcine) 4,000 units 10/30/17 13:43 Heparin Sodium IVPUSH 10/30/17 13:44 ONETIME ONE Iopamidol 100 ml 10/30/17 12:40 10/30/17 13:14 Isovue-300 (61%) IVPUSH 10/30/17 12:41 100 ml ONETIME ONE Administration - Radiology Interpretation Free Text/Narrative:: CXR: No acute process CT Head: No acute findings; mild generalized atrophy CT Ang Chest: Large bilateral central pulmonary emboli with evidence of right heart strain See scanned report in EMR CT Results Date: 10/30/17 CT Results Time: 13:31 Departure - Departure Time of Disposition: 14:05 Disposition: DC/Tfer to Acute Hospital 02 Condition: Good Clinical Impression: Bilateral pulmonary embolism, Hypoxia, Shortness of breath - Discharge Information Forms: Interfacility Transfer [facility] ED Communication - ED Communication Date/Time Date: 10/30/17 Time Called: 13:35 - Discussed Case With (1) Discussed Case With (1): Admitting Provider (Dr. Mccall, ) - Conversation Summary Admitting Provider Agreed to Patient's Admission: Yes Patient Aware of Amendments fo Care Plan: Yes Patient's POA/Guardian Aware of Amendments to Care Plan: Yes - Problem List Review Problem List Initiated/Reviewed/Updated: Yes - My Orders Last 24 Hours: My Active Orders 10/30/17 10:56 EKG 12 Lead [EKG Documentation Completion] [RC] STAT Sodium Chloride 0.9% [Saline Flush] 10 ml FLUSH ASDIRECTED PRN Peripheral IV Insertion Adult [OM.PC] Routine 10/30/17 10:57 Head wo Cont [CT] Stat 10/30/17 10:58 Chest 1V Frontal [CR] Stat 10/30/17 12:25 Chest PE [Ang Chest] [CT] Stat 10/30/17 13:45 Heparin Sodium/0.45% NaCl [Heparin 25,000 Units in 1/2 NS 500 ML] 25,000 units in 500 ml IV TITRATE - Assessment/Plan Last 24 Hours: My Active Orders 10/30/17 10:56 EKG 12 Lead [EKG Documentation Completion] [RC] STAT Sodium Chloride 0.9% [Saline Flush] 10 ml FLUSH ASDIRECTED PRN Peripheral IV Insertion Adult [OM.PC] Routine 10/30/17 10:57 Head wo Cont [CT] Stat 10/30/17 10:58 Chest 1V Frontal [CR] Stat 10/30/17 12:25 Chest PE [Ang Chest] [CT] Stat 10/30/17 13:45 Heparin Sodium/0.45% NaCl [Heparin 25,000 Units in 1/2 NS 500 ML] 25,000 units in 500 ml IV TITRATE Assessment:: Bilateral PE Hypoxia SOB Hypotension Plan: Case discussed with Dr. Mccall, Patient accepted in transfer. Report given. Patient will be sent to [facility] via ALS ground. Patient and family agree with POC.
[2017-10-30] MEDS ORDERED: Heparin Sodium 5,000 Units/ML Vial IVPUSH ONE (13:43)
[2017-10-30] MEDS ORDERED: Heparin Sodium/0.45% NaCl 25,000 UNITS/500 ML BAG IV SCH ×2 (13:45→14:23)
== END 2017-10-30 15:45 | disposition short-term general hospital (02) ==
LOC: VM.ED 10:45
DX: I26.99 Other pulmonary embolism without acute cor pulmonale (principal); R09.02 Hypoxemia; I95.9 Hypotension, unspecified; R55 Syncope and collapse; Z79.82 Long term (current) use of aspirin; Z79.899 Other long term (current) drug therapy
CPT/HCPCS: 36415; 36600; 70450; 71045; 71275; 80053; 82550; 82803; 83605; 83880; 84484; 85025; 85379; 85610; 93005; 96365; 99285; G0480; J1644; Q9967; 93010; 99284-GF

== ENCOUNTER 2017-11-06 13:27 | Inpatient (IN) | payer MEDICARE, BC ==
[2017-11-06] MEDS ORDERED: Acetaminophen 325 MG Tab PO SCH (18:00)
[2017-11-06] MEDS: LOVASTATIN 40 MG PO SCH ×2 (19:57→20:04)
[2017-11-06] MEDS: Doxazosin 4 MG Tab PO SCH (19:58)
[2017-11-06] MEDS: Enoxaparin 120 MG/0.8 ML Syringe SUBCUT SCH (19:58)
[2017-11-06] MEDS: Acetaminophen 325 MG Tab PO SCH (19:59)
[2017-11-06] MEDS: Melatonin 3 MG Tab PO SCH (19:59)
--- NOTE | 2017-11-06 20:42 | PCM.HP ---
H&P History of Present Illness - General Date of Service: 11/06/17 Admit Problem/Dx: Admission Diagnosis/Problem Admission Diagnosis/Problem PE, Pulmonary embolism - History of Present Illness Initial Comments - Free Text/Narative: HPI: He is admitted to Swing [facility] following submassive pulmonary embolus. On 10/11/17 he suffered a sudden spontaneous rupture of his L quadriceps tendon, and had surgical repair. His postop course was first complicated by acute urinary retention about 2 days after the surgery and he had to have a Day catheter for a while. On 10/30/17, about 3 weeks postop, he became suddenly dyspneic, hypotensive, lightheaded and was seen in ER, CT showed large bilateral pulmonary emboli and he was transferred emergently to . Because of his hypoxia and dyspnea, he had an immediate interventional radiology consult , and with pulmonary artery catheterization and thrombolytic Rx he remembers starting to breathe quite normally almost right away. He did have another episode of acute urinary retention and again has an indwelling Day catheter. He is no longer on oxygen, is on Lovenox and starting Coumadin, but needs Swing Bed because he is still not ambulating well, still has quite a swollen L leg, has been this way even before his tendon surgery. He has also been on CPAP for obstructive sleep apnea for a long time. He does have morbid obesity. After 1 week in hospital he is T/F to Swing Bed. At the time of his first episode of acute urinary retention there was an attempt to increase Hytrin since he was already on that for hypertension, but he became quite hypotensive. Medical History: -Rx for many years for hypertension, including Rx with Hytrin because of urinary hesitancy -Rx for years with propranolol for essential tremor, until it was D/Cd 07/11 -07/11 had stress test for question of unexplained Q waves on EKG, negative; denies any Hx of coronary disease -10/11 acute urinary retention, see above Surgical History: -Tonsillectomy -Appendectomy -Colonoscopy 2, negative -Nasal polypectomy -L quadriceps tendon repair/ Family History: -Father had Hodgkins lymphoma, age 84 -Brother had congenital heart disease -Grandmother had essential tremor Social History: , but has a domestic partner, lived in and managed the [place] 83, 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 Moved back to 05/10 to be nearer his 2 daughters who live here. Primary Care from [facility]. Systems Review: Constitutional: Except for morbid obesity and hypertension, felt he was in fairly good health until his sudden quadriceps rupture in 10/11. ENT: Hearing might be slightly decreased but does not wear hearing aids, has his own teeth Eyes: He wears glasses, has been told he might have early cataracts Respiratory: Never a smoker, denies any lung disease until the pulmonary embolus Cardiac: Denies any CAD, says he passed his stress test which was done because of Q waves, though he doesnt remember any ischemic event or chest pain GI: His 2 colonoscopies were negative, denies any problems Endocrine: He is on Mevacor for hyperlipidemia, has not had elevated blood sugars : See HPI Musculoskeletal: Some mild generalized arthritis Skin: Has precancerous keratoses on his scalp but never any actual skin cancer Allergies: No seasonal allergies Neurologic: Has essential tremor, as did his grandmother, was on propranolol for it but is not any longer; no trouble with headaches or syncope, except was lightheaded recently when he was hypotensive Heme: Says he has bruised easily for a long time, now is on Coumadin for the PE Psych: Denies any depression or other mood problems. Physical Exam: General: Mildly hypertensive, morbid obesity; alert, congenial and answers questions appropriately ENT: No cerumen, hearing seems OK; teeth in good repair Eyes: Pupils equal Neck: No masses palpable, no bruit heard Cardiac: Heart sounds normal and regular, no murmur; unable to feel pulses in feet because of edema, 2+ L, 1+ R Pulmonary: Not on oxygen, does not appear dyspneic, lung sounds clear Abdominal: No palpable tenderness or organomegaly or masses : Day catheter is draining clear urine Musculoskeletal: Joints appear generally normal; he has a hinged knee brace on L Neurologic: Facial muscles, speech normal; did not test fur joiner strength. DTRs; his tremor is not noticeable at rest Skin: Did not examine the AKs on his scalp, no other gross abnormalities Psych: Affect normal Impression: -Starting Coumadin anticoagulation for bilateral pulmonary embolus 3 weeks postop L quadriceps tendon repair for spontaneous rupture -Hypertension, BP mildly elevated now -Hyperlipidemia, on Mevacor -Morbid obesity Plan: -He has Orthopedic F/U on 11/21/17 and Urology F/U on 12/04/17 -Lovenox and Coumadin as ordered, presume Coumadin clinic will be managing his INRs -[facility] Will follow him in Swing Bed Bilateral Feet Pain Score (Numeric/FACES): 5 - Related Data Allergies/Adverse Reactions: Allergies Allergy/AdvReac Type Severity Reaction Status Date / Time No Known Allergies Allergy Verified 10/30/17 12:04 Home Medications: Home Meds Enalapril [Vasotec] 5 mg PO DAILY 10/07/17 [History] Lovastatin 60 mg PO BEDTIME 10/07/17 [History] Terazosin [Hytrin] 5 mg PO BEDTIME 10/07/17 [History] Acetaminophen [Pain Relief] 650 mg PO Q6H 11/06/17 [History] Enoxaparin Sodium [Lovenox] 120 mg SQ BID 11/06/17 [History] Melatonin 6 mg PO BEDTIME 11/06/17 [History] Polyethylene Glycol [Polyox Wsr-301] 1 gm PO DAILY 11/06/17 [History] Primidone [Mysoline] 150 mg PO DAILY 11/06/17 [History] Sennosides/Docusate Sodium [Senna-Docusate Sodium] 2 each PO BID PRN 11/06/17 [ History] Tamsulosin [Tamsulosin 24 Hr] 0.4 mg PO DAILY 11/06/17 [History] Warfarin [Coumadin] 5.25 mg PO DAILY 11/06/17 [History] Past Medical History HEENT History: Reports: Cataract, Impaired Vision Cardiovascular History: Reports: Hypertension Respiratory History: Reports: PE, Sleep Apnea Psychiatric History: Reports: Addiction - Past Surgical History HEENT Surgical History: Reports: Tonsillectomy Cardiovascular Surgical History: Reports: Aneurysm Musculoskeletal Surgical History: Reports: Other (See Below) Other Musculoskeletal Surgeries/Procedures:: left quad repair, tendon repair to L knee Social & Family History - Family History Family Medical History: Noncontributory - Tobacco Use Smoking Status *Q: Never Smoker Second Hand Smoke Exposure: No - Caffeine Use Caffeine Use: Reports: Coffee - Alcohol Use Days Per Week of Alcohol Use: 0 - Recreational Drug Use Recreational Drug Use: No H&P Review of Systems - Review of Systems: Review Of Systems: See Below Exam - Exam Exam: See Below - Vital Signs Vital Signs: Last Vital Signs Temp 36.6 C 11/06/17 17:08 Pulse 55 L 11/06/17 17:08 Resp 16 11/06/17 17:08 BP 127/71 11/06/17 19:58 Pulse Ox 96 11/06/17 17:08 Weight: 131.542 kg Problem List Initiated/Reviewed/Updated: Yes Orders Last 24hrs: Active Orders 24 hr Category Date Time Status Admission Status [Patient Status] [ADT] Routine ADT 11/06/17 15:00 Active Patient Status [ADT] Routine ADT 11/06/17 17:25 Active CPAP Adult [RT BiPAP/CPAP] [RC] 22 Care 11/06/17 17:07 Active Communication Order [RC] 08,20 Care 11/06/17 18:29 Active Communication Order [RC] Q8H Care 11/06/17 17:00 Active Oxygen Therapy [RC] .PRN Care 11/06/17 17:25 Active Vital Signs [RC] 06,18 Care 11/06/17 17:25 Active OT Evaluation and Treatment [CONS] Routine Cons 11/06/17 15:00 Active PT Evaluation and Treatment [CONS] Routine Cons 11/06/17 15:00 Active CULTURE MRSA SURVEY [RM] Routine Lab 11/06/17 17:20 Received Acetaminophen [Tylenol] Med 11/06/17 20:00 Active 650 mg PO Q6H Docusate Sodium/Sennosides [Senna Plus] Med 11/06/17 17:34 Active 2 tab PO BID PRN Doxazosin [Cardura] Med 11/06/17 20:00 Active 4 mg PO BEDTIME Enalapril [Vasotec] Med 11/07/17 08:00 Active 5 mg PO DAILY Enoxaparin [Lovenox] Med 11/06/17 20:00 Active 120 mg SUBCUT BID Melatonin Med 11/06/17 20:00 Active 6 mg PO BEDTIME Patient's Own Medication [Ptom] Med 11/06/17 20:00 Active 0 each PO BEDTIME Polyethylene Glycol 3350 [MiraLAX] Med 11/07/17 08:00 Active 17 gm PO DAILY Primidone [Mysoline] Med 11/07/17 08:00 Active 150 mg PO DAILY Tamsulosin [Flomax] Med 11/07/17 08:00 Active 0.4 mg PO DAILY Elastic Wrap [OM.PC] Routine Oth 11/06/17 17:04 Ordered Resuscitation Status Routine Resus Stat 11/06/17 17:25 Ordered Medication Orders Acetaminophen (Tylenol) 650 mg PO Q6H [facility] Last Admin: 11/06/17 19:59 Dose: 650 mg Doxazosin Mesylate (Cardura) 4 mg PO BEDTIME [facility] Last Admin: 11/06/17 19:58 Dose: 4 mg Enalapril Maleate (Vasotec) 5 mg PO DAILY [facility] Enoxaparin Sodium (Lovenox) 120 mg SUBCUT BID [facility] Last Admin: 11/06/17 19:58 Dose: 120 mg Melatonin (Melatonin) 6 mg PO BEDTIME [facility] Last Admin: 11/06/17 19:59 Dose: 6 mg PtomLovastatin (40 Mg Tab) 0 each PO BEDTIME [facility] Last Admin: 11/06/17 20:04 Dose: 1.5 each Polyethylene Glycol (Miralax) 17 gm PO DAILY [facility] Primidone (Mysoline) 150 mg PO DAILY [facility] Senna/Docusate Sodium (Senna Plus) 2 tab PO BID PRN PRN Reason: Constipation Tamsulosin HCl (Flomax) 0.4 mg PO DAILY [facility]
[2017-11-07] MEDS: Acetaminophen 325 MG Tab PO SCH ×4 (01:48→20:33)
[2017-11-07] MEDS: Primidone 50 MG Tab PO SCH (08:23)
[2017-11-07] MEDS: Enoxaparin 120 MG/0.8 ML Syringe SUBCUT SCH ×2 (08:24→20:34)
[2017-11-07] MEDS: Enalapril 5 MG Tab PO SCH (08:24)
[2017-11-07] MEDS: Tamsulosin 0.4 MG Cap.ER PO SCH (08:25)
[2017-11-07] MEDS: Polyethylene Glycol 3350 Powder 17 GM Packet PO SCH (08:25)
[2017-11-07] MEDS ORDERED: Warfarin 5 MG Tab PO SCH (16:00)
[2017-11-07] MEDS ORDERED: LOVASTATIN 40 MG PO SCH (20:00)
[2017-11-07] MEDS: Melatonin 3 MG Tab PO SCH (20:32)
[2017-11-07] MEDS: Doxazosin 4 MG Tab PO SCH (20:32)
[2017-11-08] MEDS: Acetaminophen 325 MG Tab PO SCH ×2 (02:09→07:35)
[2017-11-08 07:08] LABS: CHLORIDE,CL 106 mmol/L (98-107); SODIUM,NA 140 mmol/L (136-145)
[2017-11-08] MEDS: Tamsulosin 0.4 MG Cap.ER PO SCH (07:35)
[2017-11-08] MEDS: Enoxaparin 120 MG/0.8 ML Syringe SUBCUT SCH (07:36)
[2017-11-08] MEDS: Primidone 50 MG Tab PO SCH (07:36)
[2017-11-08] MEDS: Enalapril 5 MG Tab PO SCH (07:36)
[2017-11-08] MEDS: Polyethylene Glycol 3350 Powder 17 GM Packet PO SCH (07:36)
--- NOTE | 2017-11-08 09:37 | PCM.DCSUM1 ---
Discharge Summary - Hospital Course Free Text/Narrative:: Patient was mid two days ago to ensuring adequate bridging anticoagulation with Lovenox to Coumadin. He's had two therapeutic INRs now. No side effects from medicine. Hospital is in [place] for large bilateral PE with IR thrombolysis. Currently asymptomatic in this regard. Blood pressure vital signs are stable, he is running a bit bradycardic. They decreased his antihypertensives there. Blood pressure stable here on the lower dose. His past alcohol use may have been making this higher but his recent PE made improved bedmaking artificially lowers well. He'll see me for a wound week or two and recheck, we'll recheck his chemistry hemoglobin and probably EKG than for any bradycardia or tachycardia. He'll do a minimum three months of Coumadin for his PE, possibly definite given the large size although it was clearly provoked by his recent knee surgery and immobilization. If he were to stay in [place] this would be a second recent to stay on indefinite therapy but this may be provoked as well. If he develops more of a tachybradycardia issue he may need to see EP but he is currently asymptomatic in this regard. He'll follow-up with [facility] and two weeks as scheduled for recheck of his knee. Home health is can continue with physical therapy currently is not really doing any weightbearing per [facility] recommendations. He'll follow-up with urology for his urinary retention NOS. They switched him to Flomax from his previous terazosin. He'll leave the catheter in for about a month total until he sees them in about three weeks as well. - Discharge Data Discharge Date: 11/08/17 Discharge Disposition: Home, Self-Care 01 Condition: Good - Patient Summary/Data Consults: Consultations 11/06/17 15:00 OT Evaluation and Treatment [CONS] Routine PT Evaluation and Treatment [CONS] Routine - Discharge Plan Home Medications: Home Meds Lovastatin 60 mg PO BEDTIME 10/07/17 [History] Acetaminophen [Pain Relief] 650 mg PO Q6H 11/06/17 [History] Melatonin 6 mg PO BEDTIME 11/06/17 [History] Polyethylene Glycol [Polyox Wsr-301] 1 gm PO DAILY 11/06/17 [History] Primidone [Mysoline] 150 mg PO DAILY 11/06/17 [History] Sennosides/Docusate Sodium [Senna-Docusate Sodium] 2 each PO BID PRN 11/06/17 [ History] Tamsulosin [Flomax] 0.4 mg PO DAILY 11/06/17 [History] Warfarin [Coumadin] 5.25 mg PO DAILY 11/06/17 [History] Enalapril [Vasotec] 5 mg PO DAILY tablet 11/08/17 [Rx] Lovastatin 40mg (Own Supply) 0 mg PO BEDTIME 11/08/17 [Rx] Melatonin 6 mg PO BEDTIME tablet 11/08/17 [Rx] Warfarin [Coumadin] 10 mg PO DAILY@1600 tablet 11/08/17 [Rx] Referrals: Wade Larkin MD [Primary Care Provider] - 11/15/17 8:45 am (You have a follow up appt. with Dr. Judit Larkin on November 15, 2017 at 8:45----[facility]) - Patient Data Vitals - Most Recent: Last Vital Signs Temp 36.3 C 11/08/17 06:00 Pulse 52 L 11/08/17 06:00 Resp 18 11/08/17 06:00 BP 129/69 11/08/17 06:00 Pulse Ox 95 11/08/17 06:00 Weight - Most Recent: 131.542 kg I&O - Last 24 hours: Intake & Output 11/07/17 11/08/17 11/08/17 22:59 06:59 14:59 Intake Total 540 240 Output Total 1425 Balance -885 240 Lab Results - Last 24 hrs: Laboratory Results - last 24 hr 11/07/17 11/07/17 11/08/17 Range/Units 09:35 09:35 06:17 WBC 4.2 (4.0-10.0) x10^3/uL RBC 3.51 L (4.5-6.0) x10^6/uL Hgb 11.6 L (14.0-18.0) g/dL Hct 35.5 L (40.0-52.0) % MCV 101.1 H (78.0-93.0) fL MCH 33.0 H (26.0-32.0) pg MCHC 32.7 (32.0-36.0) g/dL RDW Coeff of James 12.6 (10.0-15.0) % Plt Count 304 D (130-400) x10^3/uL PT 23.4 H D 25.8 H (9.6-11.4) SEC INR 2.3 2.5 (2.0-3.5) Sodium (136-145) mmol/L Potassium (3.5-5.1) mmol/L Chloride (98-107) mmol/L Carbon Dioxide (21-32) mmol/L Anion Gap (10-20) mmol/L BUN (7-18) mg/dL Creatinine (0.70-1.30) mg/dL Est Cr Clr Drug Dosing mL/min Estimated GFR (MDRD) Glucose (74-106) mg/dL Calcium (8.5-10.1) mg/dL 11/08/17 Range/Units 06:17 WBC (4.0-10.0) x10^3/uL RBC (4.5-6.0) x10^6/uL Hgb (14.0-18.0) g/dL Hct (40.0-52.0) % MCV (78.0-93.0) fL MCH (26.0-32.0) pg MCHC (32.0-36.0) g/dL RDW Coeff of James (10.0-15.0) % Plt Count (130-400) x10^3/uL PT (9.6-11.4) SEC INR (2.0-3.5) Sodium 140 (136-145) mmol/L Potassium 4.1 (3.5-5.1) mmol/L Chloride 106 (98-107) mmol/L Carbon Dioxide 26 (21-32) mmol/L Anion Gap 12.1 (10-20) mmol/L BUN 16 (7-18) mg/dL Creatinine 1.0 (0.70-1.30) mg/dL Est Cr Clr Drug Dosing 81.06 mL/min Estimated GFR (MDRD) > 60 Glucose 97 (74-106) mg/dL Calcium 8.5 (8.5-10.1) mg/dL LAYO Results - Last 24 hrs: Microbiology 11/06/17 17:20 MRSA Surveillance Culture - Final Nares, Unspecified NO MRSA ISOLATED Med Orders - Current: Current Medications Acetaminophen (Tylenol) 650 mg PO Q6H [facility] Last Admin: 11/08/17 07:35 Dose: 650 mg Doxazosin Mesylate (Cardura) 4 mg PO BEDTIME [facility] Last Admin: 11/07/17 20:32 Dose: 4 mg Enalapril Maleate (Vasotec) 5 mg PO DAILY [facility] Last Admin: 11/08/17 07:36 Dose: 5 mg Melatonin (Melatonin) 6 mg PO BEDTIME [facility] Last Admin: 11/07/17 20:32 Dose: 6 mg Lovastatin 40mg (Own (Supply)) 0 mg PO BEDTIME [facility] Last Admin: 11/07/17 20:35 Dose: 40 mg Polyethylene Glycol (Miralax) 17 gm PO DAILY [facility] Last Admin: 11/08/17 07:36 Dose: 17 gm Primidone (Mysoline) 150 mg PO DAILY [facility] Last Admin: 11/08/17 07:36 Dose: 150 mg Senna/Docusate Sodium (Senna Plus) 2 tab PO BID PRN PRN Reason: Constipation Tamsulosin HCl (Flomax) 0.4 mg PO DAILY [facility] Last Admin: 11/08/17 07:35 Dose: 0.4 mg Warfarin Sodium (Coumadin) 10 mg PO DAILY@1600 [facility] Last Admin: 11/07/17 15:55 Dose: 10 mg Discontinued Medications Acetaminophen (Tylenol) 650 mg PO Q6H [facility] Enoxaparin Sodium (Lovenox) 120 mg SUBCUT BID [facility] Last Admin: 11/08/17 07:36 Dose: 120 mg PtomLovastatin (40 Mg Tab) 0 each PO BEDTIME [facility] Last Admin: 11/06/17 20:04 Dose: 1.5 each
== END 2017-11-08 10:50 | disposition home or self-care (01) | DRG 556 ==
LOC: VM.MS 16:38
PROVIDERS: ADMIT Family Medicine; ATTEND Family Medicine
DX: R26.2 Difficulty in walking, not elsewhere classified (principal); G47.33 Obstructive sleep apnea (adult) (pediatric); M79.89 Other specified soft tissue disorders; E66.01 Morbid (severe) obesity due to excess calories; R33.9 Retention of urine, unspecified; Z86.711 Personal history of pulmonary embolism; Z79.01 Long term (current) use of anticoagulants; I10 Essential (primary) hypertension; R39.11 Hesitancy of micturition; H91.90 Unspecified hearing loss, unspecified ear; H26.9 Unspecified cataract; E78.5 Hyperlipidemia, unspecified; M15.9 Polyosteoarthritis, unspecified; L57.0 Actinic keratosis; G25.0 Essential tremor; Z79.899 Other long term (current) drug therapy; H54.7 Unspecified visual loss
CPT/HCPCS: 36415; 80048; 85027; 85610; 97110-GP; 97161-GP; 97165-GO; A9270-GY; J1650

== ENCOUNTER 2017-12-02 08:57 | Emergency (ER) | payer MEDICARE, BC ==
--- NOTE | 2017-12-02 10:30 | EDM.PDOC ---
ED HPI GENERAL MEDICAL PROBLEM - General Chief Complaint: Genitourinary Problem Stated Complaint: CANT URINATE Time Seen by Provider: 12/02/17 09:53 Source of Information: Reports: Patient, Family History Limitations: Reports: No Limitations - History of Present Illness INITIAL COMMENTS - FREE TEXT/NARRATIVE: Patient with significant medical history over the last several weeks. He did have knee surgery which lead to immobilization. He developed PE to the lungs and DVT to the surgical leg. He was started on coumadin and was unable to urinate. He had a catheter in until last week . He went to the clinic because he had visible blood in the catheter. He was found to have a urinary tract infection and started on Cipro. His catheter was removed at that time. He has had increasing pressure and more dribbling that is progressively worsening. He denies fever, chills, chest pain, SOB. He does have abdominal pressure. Onset: Gradual Location: Reports: Abdomen Quality: Reports: Pressure Severity: Mild Associated Symptoms: Reports: No Other Symptoms - Related Data Allergies Allergy/AdvReac Type Severity Reaction Status Date / Time No Known Allergies Allergy Verified 12/02/17 09:14 Home Meds: Home Meds Lovastatin 60 mg PO BEDTIME 10/07/17 [History] Acetaminophen [Pain Relief] 650 mg PO Q6H 11/06/17 [History] Melatonin 6 mg PO BEDTIME 11/06/17 [History] Polyethylene Glycol [Polyox Wsr-301] 1 gm PO DAILY 11/06/17 [History] Primidone [Mysoline] 150 mg PO DAILY 11/06/17 [History] Sennosides/Docusate Sodium [Senna-Docusate Sodium] 2 each PO BID PRN 11/06/17 [ History] Tamsulosin [Flomax] 0.4 mg PO DAILY 11/06/17 [History] Warfarin [Coumadin] 5.25 mg PO DAILY 11/06/17 [History] Enalapril [Vasotec] 5 mg PO DAILY tablet 11/08/17 [Rx] Lovastatin 40mg (Own Supply) 0 mg PO BEDTIME 11/08/17 [Rx] Melatonin 6 mg PO BEDTIME tablet 11/08/17 [Rx] Warfarin [Coumadin] 10 mg PO DAILY@1600 tablet 11/08/17 [Rx] Past Medical History HEENT History: Reports: Cataract, Impaired Vision Cardiovascular History: Reports: Hypertension Respiratory History: Reports: PE, Sleep Apnea Psychiatric History: Reports: Addiction - Past Surgical History HEENT Surgical History: Reports: Tonsillectomy Cardiovascular Surgical History: Reports: Aneurysm Musculoskeletal Surgical History: Reports: Other (See Below) Other Musculoskeletal Surgeries/Procedures:: left quad repair, tendon repair to L knee Social & Family History - Family History Family Medical History: Noncontributory - Tobacco Use Smoking Status *Q: Unknown Ever Smoked - Caffeine Use Caffeine Use: Reports: Coffee ED ROS GENERAL - Review of Systems Review Of Systems: See Below Constitutional: Reports: No Symptoms HEENT: Reports: No Symptoms Respiratory: Reports: No Symptoms Cardiovascular: Reports: No Symptoms Endocrine: Reports: No Symptoms GI/Abdominal: Reports: Abdominal Pain : Reports: Urinary Retention Musculoskeletal: Reports: No Symptoms Skin: Reports: No Symptoms Neurological: Reports: No Symptoms Psychiatric: Reports: No Symptoms ED EXAM, RENAL/ - Physical Exam Exam: See Below Exam Limited By: No Limitations General Appearance: Alert, WD/WN, Mild Distress Eye Exam: Bilateral Eye: EOMI, PERRL Head: Atraumatic, Normocephalic Neck: Normal Inspection, Supple, Non-Tender, Full Range of Motion Respiratory/Chest: No Respiratory Distress, Lungs Clear, Normal Breath Sounds, No Accessory Muscle Use, Chest Non-Tender Cardiovascular: Normal Peripheral Pulses, Regular Rate, Rhythm, No Edema, No Gallop, No JVD, No Murmur, No Rub GI/Abdominal: Normal Bowel Sounds, Soft, Distended (lower pelvis is distended and firm), Tender Back Exam: Normal Inspection, Full Range of Motion, NT Extremities: Normal Inspection, Normal Range of Motion, Non-Tender, No Pedal Edema, Normal Capillary Refill, Other (left knee in brace) Neurological: Alert, Oriented, CN II-XII Intact, Normal Cognition, Normal Gait, Normal Reflexes, No Motor/Sensory Deficits Psychiatric: Normal Affect, Normal Mood Skin Exam: Warm, Dry, Intact, Normal Color, No Rash Lymphatic: No Adenopathy Course - Vital Signs Last Recorded V/S: Last Vital Signs Temp 36.6 C 12/02/17 09:05 Pulse 60 12/02/17 09:05 Resp 16 12/02/17 09:05 BP 159/86 H 12/02/17 09:05 Pulse Ox 95 12/02/17 09:05 - Orders/Labs/Meds Orders: Active Orders 24 hr Category Date Time Status Dya Catheter Insertion [Insert Urinary Catheter] [OM. Care 12/02/17 10:00 Ordered PC] Q24H Urinary Catheter Assessment [RC] ASDIRECTED Care 12/02/17 09:54 Ordered URINALYSIS W/MICROSCOPIC [UA W/MICROSCOPIC] [URIN] Stat Lab 12/02/17 10:21 Ordered Departure - Departure Time of Disposition: 10:25 Disposition: Home, Self-Care 01 Condition: Good Clinical Impression: UTI, Urinary tract infectious disease, Retention of urine, Encounter for Day catheter replacement - Discharge Information Instructions: Urinary Tract Infection, Adult, [id number], Acute Urinary Retention, Male, [id number] Referrals: Wade Larkin MD [Primary Care Provider] - Additional Instructions: Follow up with your primary doctor next week. Keep your follow up with Dr. Augustine on Monday Any sudden pulling or jerking of the catheter may cause bleeding Stay well hydrated. Call with any questions or concerns - Problem List & Annotations (1) Retention of urine SNOMED Code(s): 707862273 Code(s): R33.9 - RETENTION OF URINE, UNSPECIFIED Status: Chronic Priority : Low Current Visit: Yes (2) UTI, Urinary tract infectious disease SNOMED Code(s): 35392463 Code(s): N39.0 - URINARY TRACT INFECTION, SITE NOT SPECIFIED Status: Acute Current Visit: Yes - Problem List Review Problem List Initiated/Reviewed/Updated: Yes - My Orders Last 24 Hours: My Active Orders 12/02/17 09:54 Urinary Catheter Assessment [RC] ASDIRECTED 12/02/17 10:00 Day Catheter Insertion [Insert Urinary Catheter] [OM.PC] Q24H 12/02/17 10:21 URINALYSIS W/MICROSCOPIC [UA W/MICROSCOPIC] [URIN] Stat - Assessment/Plan Last 24 Hours: My Active Orders 12/02/17 09:54 Urinary Catheter Assessment [RC] ASDIRECTED 12/02/17 10:00 Day Catheter Insertion [Insert Urinary Catheter] [OM.PC] Q24H 12/02/17 10:21 URINALYSIS W/MICROSCOPIC [UA W/MICROSCOPIC] [URIN] Stat Assessment:: UTI Acute urinary retention
== END 2017-12-02 10:41 | disposition home or self-care (01) ==
LOC: VM.ED 08:57
DX: Z46.6 Encounter for fitting and adjustment of urinary device (principal); N39.0 Urinary tract infection, site not specified; I10 Essential (primary) hypertension; Z79.01 Long term (current) use of anticoagulants; Z79.899 Other long term (current) drug therapy
CPT/HCPCS: 51702; 51798; 81001; 99284; 99284-GF

== ENCOUNTER 2017-12-12 14:37 | Emergency (ER) | payer MEDICARE, BC ==
--- NOTE | 2017-12-12 15:24 | EDM.PDOC ---
ED HPI GENERAL MEDICAL PROBLEM - General Chief Complaint: Genitourinary Problem Stated Complaint: CATH ISSUES Time Seen by Provider: 12/12/17 14:37 Source of Information: Reports: Patient History Limitations: Reports: No Limitations - History of Present Illness INITIAL COMMENTS - FREE TEXT/NARRATIVE: PtRocael presents to ER with complaints of a painful cross catheter. He states that he has had issues with urinary retention since having knee surgery in September of 2017. He has has approx. 6 catheters placed since that time due to retention. He states that urology removed the catheter yesterday and he was retaining urine last night/this AM. He presented to the clinic for this. The catheter was placed and taped to his thigh, as the clinic did not have a catheter securing device. Subsequently the catheter has been pulling on his penis causing him discomfort. Onset: Today - Related Data Allergies Allergy/AdvReac Type Severity Reaction Status Date / Time No Known Allergies Allergy Verified 12/02/17 09:14 Home Meds: Home Meds Lovastatin 60 mg PO BEDTIME 10/07/17 [History] Acetaminophen [Pain Relief] 650 mg PO Q6H 11/06/17 [History] Primidone [Mysoline] 150 mg PO DAILY 11/06/17 [History] Tamsulosin [Flomax] 0.4 mg PO DAILY 11/06/17 [History] Enalapril [Vasotec] 5 mg PO DAILY tablet 11/08/17 [Rx] Warfarin [Coumadin] 10 mg PO DAILY@1600 tablet 11/08/17 [Rx] Ciprofloxacin HCl 1 tab PO BID 12/02/17 [History] Past Medical History HEENT History: Reports: Cataract, Impaired Vision Cardiovascular History: Reports: Hypertension Respiratory History: Reports: PE, Sleep Apnea Psychiatric History: Reports: Addiction - Past Surgical History HEENT Surgical History: Reports: Tonsillectomy Cardiovascular Surgical History: Reports: Aneurysm Musculoskeletal Surgical History: Reports: Other (See Below) Other Musculoskeletal Surgeries/Procedures:: left quad repair, tendon repair to L knee Social & Family History - Family History Family Medical History: Noncontributory - Caffeine Use Caffeine Use: Reports: Coffee ED ROS GENERAL - Review of Systems Review Of Systems: See Below Constitutional: Reports: No Symptoms Respiratory: Reports: No Symptoms Cardiovascular: Reports: No Symptoms Endocrine: Reports: No Symptoms GI/Abdominal: Reports: No Symptoms : Reports: Pain, Urinary Retention, Other (penile pain) Musculoskeletal: Reports: No Symptoms Skin: Reports: No Symptoms ED EXAM, GENERAL - Physical Exam Exam: See Below Exam Limited By: No Limitations General Appearance: Alert, WD/WN, No Apparent Distress Neck: Normal Inspection, Supple, Non-Tender, Full Range of Motion Respiratory/Chest: No Respiratory Distress, Lungs Clear, Normal Breath Sounds, No Accessory Muscle Use, Chest Non-Tender Cardiovascular: Normal Peripheral Pulses, Regular Rate, Rhythm, No Edema, No Gallop, No JVD, No Murmur, No Rub GI/Abdominal: Normal Bowel Sounds, Soft, Non-Tender, No Organomegaly, No Distention, No Abnormal Bruit, No Mass (Male) Exam: No Hernia, Normal Inspection, Other (cross catheter in place. Urine is michell colored. No celluitis.) Rectal (Males) Exam: Deferred Back Exam: Normal Inspection, Full Range of Motion. No: CVA Tenderness (L), CVA Tenderness (R) Extremities: Normal Inspection, Normal Range of Motion, Non-Tender, Normal Capillary Refill, No Pedal Edema Departure - Departure Time of Disposition: 15:26 Disposition: Home, Self-Care 01 Clinical Impression: Urinary retention - Discharge Information Instructions: Acute Urinary Retention, Male Referrals: PCP,Unknown [Primary Care Provider] - Forms: ED Department Discharge Additional Instructions: Follow-up with urology regarding the removal of the catheter as directed. Return to ER if further discomfort, discolored urine, fever, chills, back pain, or weakness.
== END 2017-12-12 15:26 | disposition home or self-care (01) ==
LOC: VM.ED 14:37
DX: R33.9 Retention of urine, unspecified (principal); I10 Essential (primary) hypertension; Z96.0 Presence of urogenital implants; Z79.899 Other long term (current) drug therapy; Z79.01 Long term (current) use of anticoagulants
CPT/HCPCS: 99282

== ENCOUNTER 2018-02-05 10:13 | Emergency (ER) | payer MEDICARE, BC ==
--- NOTE | 2018-02-06 18:08 | EDM.PDOC ---
ED HPI GENERAL MEDICAL PROBLEM - General Chief Complaint: Genitourinary Problem Stated Complaint: CATH Time Seen by Provider: 02/05/18 10:35 Source of Information: Reports: Patient History Limitations: Reports: No Limitations - History of Present Illness INITIAL COMMENTS - FREE TEXT/NARRATIVE: Pt. is continuing to have issues with his catheter. He has a dual lumen catheter placed, and it is secured with a stat lock. He states that the catheter is too large with the dual lumen for the stat lock, and he states that it frequently falls out of the stat lock, causing pulling and discomfort. Denies any dysuria. No fever or chills. No hematuria. Penis Pain Score (Numeric/FACES): 6 - Related Data Allergies Allergy/AdvReac Type Severity Reaction Status Date / Time No Known Allergies Allergy Verified 02/05/18 11:06 Home Meds: Home Meds Lovastatin 60 mg PO BEDTIME 10/07/17 [History] Acetaminophen [Pain Relief] 650 mg PO Q6H 11/06/17 [History] Primidone [Mysoline] 150 mg PO DAILY 11/06/17 [History] Tamsulosin [Flomax] 0.8 mg PO DAILY 11/06/17 [History] Enalapril [Vasotec] 5 mg PO DAILY tablet 11/08/17 [Rx] Warfarin [Coumadin] 10 mg PO DAILY@1600 tablet 11/08/17 [Rx] Ciprofloxacin HCl 1 tab PO BID 12/02/17 [History] Finasteride 5 mg PO DAILY 02/03/18 [History] hydroCHLOROthiazide [Hydrochlorothiazide] 12.5 mg PO DAILY 02/03/18 [History] Past Medical History HEENT History: Reports: Cataract, Impaired Vision Cardiovascular History: Reports: Hypertension Respiratory History: Reports: PE, Sleep Apnea Psychiatric History: Reports: Addiction - Past Surgical History HEENT Surgical History: Reports: Tonsillectomy Cardiovascular Surgical History: Reports: Aneurysm Musculoskeletal Surgical History: Reports: Other (See Below) Other Musculoskeletal Surgeries/Procedures:: left quad repair, tendon repair to L knee Social & Family History - Family History Family Medical History: Noncontributory - Tobacco Use Smoking Status *Q: Never Smoker - Caffeine Use Caffeine Use: Reports: Coffee - Alcohol Use Days Per Week of Alcohol Use: 7 Number of Drinks Per Day: 2 Total Drinks Per Week: 14 - Recreational Drug Use Recreational Drug Use: No ED ROS GENERAL - Review of Systems Review Of Systems: ROS reveals no pertinent complaints other than HPI. ED EXAM, GENERAL - Physical Exam Exam: See Below GI/Abdominal: Normal Bowel Sounds, Soft, Non-Tender, No Organomegaly, No Distention, No Abnormal Bruit, No Mass (Male) Exam: No Hernia, Normal Inspection. No: Normal Prostate, Suprapubic Fullness Course - Vital Signs Last Recorded V/S: Last Vital Signs Temp 36.6 C 02/05/18 10:20 Pulse 64 02/05/18 10:20 Resp 18 02/05/18 10:20 BP 154/86 H 02/05/18 10:20 Pulse Ox Departure - Departure Time of Disposition: 10:30 Disposition: Home, Self-Care 01 Clinical Impression: Day catheter status, Day catheter problem - Discharge Information Referrals: Wade Larkin MD [Primary Care Provider] - Forms: ED Department Discharge Additional Instructions: Follow-up in clinic or return to ER if you are still having issues with the catheter. - Assessment/Plan Plan: Follow-up in clinic or return to ER if you are still having issues with the catheter.
== END 2018-02-05 11:00 | disposition home or self-care (01) ==
LOC: VM.ED 10:13
DX: T83.098A Other mechanical complication of other urinary catheter, initial encounter (principal); I10 Essential (primary) hypertension; Z79.899 Other long term (current) drug therapy
CPT/HCPCS: 51702; 99283

== ENCOUNTER 2018-03-19 13:25 | Emergency (ER) | payer MEDICARE, BC ==
[2018-03-19] MEDS ORDERED: Lidocaine 2% Jelly 10 ML Urojet MUCMEM ONE (15:02)
--- NOTE | 2018-03-20 06:40 | EDM.PDOC ---
ED HPI GENERAL MEDICAL PROBLEM - General Chief Complaint: Genitourinary Problem Stated Complaint: BLEEDING Time Seen by Provider: 03/19/18 13:35 Source of Information: Reports: Patient, Family History Limitations: Reports: No Limitations - History of Present Illness INITIAL COMMENTS - FREE TEXT/NARRATIVE: Pt. underwent prostate vaporization surgery last Monday. Pt. states that he had a cross catheter placed which was removed today. Pt. states that after the catheter was removed, he developed hematuria and large blood clots were passed. Denies any fever or chills. States that his bladder feels full. Onset: Today Onset Date: 03/19/18 - Related Data Allergies Allergy/AdvReac Type Severity Reaction Status Date / Time No Known Allergies Allergy Verified 02/05/18 11:06 Home Meds: Home Meds Lovastatin 60 mg PO BEDTIME 10/07/17 [History] Acetaminophen [Pain Relief] 650 mg PO Q6H 11/06/17 [History] Primidone [Mysoline] 150 mg PO DAILY 11/06/17 [History] Tamsulosin [Flomax] 0.8 mg PO DAILY 11/06/17 [History] Enalapril [Vasotec] 5 mg PO DAILY tablet 11/08/17 [Rx] Warfarin [Coumadin] 10 mg PO DAILY@1600 tablet 11/08/17 [Rx] Ciprofloxacin HCl 1 tab PO BID 12/02/17 [History] Finasteride 5 mg PO DAILY 02/03/18 [History] hydroCHLOROthiazide [Hydrochlorothiazide] 12.5 mg PO DAILY 02/03/18 [History] Past Medical History HEENT History: Reports: Cataract, Impaired Vision Cardiovascular History: Reports: Hypertension Respiratory History: Reports: PE, Sleep Apnea Genitourinary History: Reports: Prostate Disorder Psychiatric History: Reports: Addiction - Past Surgical History HEENT Surgical History: Reports: Tonsillectomy Cardiovascular Surgical History: Reports: Aneurysm Musculoskeletal Surgical History: Reports: Other (See Below) Other Musculoskeletal Surgeries/Procedures:: left quad repair, tendon repair to L knee Social & Family History - Family History Family Medical History: Noncontributory - Tobacco Use Smoking Status *Q: Unknown Ever Smoked - Caffeine Use Caffeine Use: Reports: Coffee - Alcohol Use Days Per Week of Alcohol Use: 7 Number of Drinks Per Day: 2 Total Drinks Per Week: 14 - Recreational Drug Use Recreational Drug Use: No ED ROS GENERAL - Review of Systems Review Of Systems: See Below Constitutional: Reports: No Symptoms : Reports: Hematuria, Other (passing blood clots in urine) Skin: Reports: No Symptoms ED EXAM, GENERAL - Physical Exam Exam: See Below Exam Limited By: No Limitations (Male) Exam: No Hernia, Normal Inspection, Other (hematuria. Difficulty passing cross catheter.) Course - Vital Signs Last Recorded V/S: Last Vital Signs Temp 36.6 C 03/19/18 13:25 Pulse 67 03/19/18 13:25 Resp 20 03/19/18 13:25 BP 167/76 H 03/19/18 13:25 Pulse Ox 97 03/19/18 13:25 - Orders/Labs/Meds Orders: Active Orders 24 hr Category Date Time Status Bladder Irrigation [RC] BID Care 03/19/18 15:49 Active Bladder Scan [RC] ASDIRECTED Care 03/19/18 14:45 Active Insert Cross Catheter [Insert Urinary Catheter] [OM.PC] Care 03/19/18 16:00 Ordered Q24H Urinary Catheter Assessment [RC] ASDIRECTED Care 03/19/18 15:49 Active Labs: Laboratory Tests 03/19/18 03/19/18 Range/Units 13:55 13:55 WBC 7.1 (4.0-10.0) x10^3/uL RBC 4.54 (4.5-6.0) x10^6/uL Hgb 14.8 D (14.0-18.0) g/dL Hct 43.0 (40.0-52.0) % MCV 94.7 H D (78.0-93.0) fL MCH 32.6 H (26.0-32.0) pg MCHC 34.4 (32.0-36.0) g/dL RDW Coeff of James 14.2 (10.0-15.0) % Plt Count 223 D (130-400) x10^3/uL Neut % (Auto) 67.4 (50.0-80.0) % Lymph % (Auto) 20.5 L (25.0-50.0) % Crockett % (Auto) 11.2 H (2.0-11.0) % Eos % (Auto) 0.6 (0.0-4.0) % Baso % (Auto) 0.3 (0.2-1.2) % PT 10.5 D (9.6-11.4) SEC INR 1.0 L (2.0-3.5) Meds: Medications Discontinued Medications Generic Name Dose Route Start Last Admin Trade Name Rosalind PRN Reason Stop Dose Admin Lidocaine HCl 10 ml 03/19/18 15:02 03/19/18 15:15 Xylocaine 2% Jelly MUCMEM 03/19/18 15:03 10 ml ONETIME ONE Administration Departure - Departure Time of Disposition: 16:00 Disposition: Home, Self-Care 01 Clinical Impression: Post-op bleeding - Discharge Information Instructions: Indwelling Urinary Catheter Care, Adult, Indwelling Urinary Catheter Insertion Referrals: Wade Larkin MD [Primary Care Provider] - Forms: ED Department Discharge Additional Instructions: Keep catheter in until tomorrow. It can be removed in the clinic. Return to ER if the catheter stops draining. - My Orders Last 24 Hours: My Active Orders 03/19/18 14:45 Bladder Scan [RC] ASDIRECTED 03/19/18 15:49 Bladder Irrigation [RC] BID Urinary Catheter Assessment [RC] ASDIRECTED 03/19/18 16:00 Insert Cross Catheter [Insert Urinary Catheter] [OM.PC] Q24H - Assessment/Plan Last 24 Hours: My Active Orders 03/19/18 14:45 Bladder Scan [RC] ASDIRECTED 03/19/18 15:49 Bladder Irrigation [RC] BID Urinary Catheter Assessment [RC] ASDIRECTED 03/19/18 16:00 Insert Cross Catheter [Insert Urinary Catheter] [OM.PC] Q24H Plan: Cross catheter was placed. Bladder was irrigated with sterile water. Keep catheter in until tomorrow. It can be removed in the clinic. Return to ER if the catheter stops draining.
== END 2018-03-19 16:00 | disposition home or self-care (01) ==
LOC: VM.ED 13:25
DX: N99.820 Postprocedural hemorrhage of a genitourinary system organ or structure following a genitourinary system procedure (principal); I10 Essential (primary) hypertension; Z79.01 Long term (current) use of anticoagulants; Z79.899 Other long term (current) drug therapy
CPT/HCPCS: 36415; 51700; 51702; 51798; 85025; 85610; 99283

== ENCOUNTER 2020-08-01 08:11 | Emergency (ER) | payer MEDICARE, BC ==
--- NOTE | 2020-08-01 09:01 | EDM.PDOC ---
ED HPI GENERAL MEDICAL PROBLEM - General Chief Complaint: Laceration Stated Complaint: LACERATION ABOVE LEFT EYE Time Seen by Provider: 08/01/20 08:47 Source of Information: Reports: Patient - History of Present Illness INITIAL COMMENTS - FREE TEXT/NARRATIVE: Sadiq is a 74 y/o male who was getting up to let his dog out this AM when he tripped on a dog toy and fell against the wall in his house. He cut his left eyebrow region. No other injuries. No LOC. Left Eyelid Pain Score (Numeric/FACES): 6 - Related Data Allergies Allergy/AdvReac Type Severity Reaction Status Date / Time No Known Allergies Allergy Verified 02/05/18 11:06 Home Meds: Home Meds Lovastatin 60 mg PO BEDTIME 10/07/17 [History] Acetaminophen 650 mg PO Q6H 11/06/17 [History] Primidone [Mysoline] 150 mg PO DAILY 11/06/17 [History] Tamsulosin [Flomax] 0.8 mg PO DAILY 11/06/17 [History] Enalapril [Vasotec] 5 mg PO DAILY tablet 11/08/17 [Rx] Warfarin [Coumadin] 10 mg PO DAILY@1600 tablet 11/08/17 [Rx] Ciprofloxacin HCl 1 tab PO BID 12/02/17 [History] Finasteride 5 mg PO DAILY 02/03/18 [History] hydroCHLOROthiazide [Hydrochlorothiazide] 12.5 mg PO DAILY 02/03/18 [History] Past Medical History HEENT History: Reports: Cataract, Impaired Vision Cardiovascular History: Reports: Hypertension Respiratory History: Reports: PE, Sleep Apnea Genitourinary History: Reports: Prostate Disorder Psychiatric History: Reports: Addiction - Past Surgical History HEENT Surgical History: Reports: Tonsillectomy Cardiovascular Surgical History: Reports: Aneurysm Musculoskeletal Surgical History: Reports: Other (See Below) Other Musculoskeletal Surgeries/Procedures:: left quad repair, tendon repair to L knee Social & Family History - Family History Family Medical History: No Pertinent Family History - Tobacco Use Tobacco Use Status *Q: Unknown Ever Used Tobacco - Caffeine Use Caffeine Use: Reports: Coffee ED ROS GENERAL - Review of Systems Review Of Systems: See Below Constitutional: Reports: No Symptoms HEENT: Reports: No Symptoms Respiratory: Reports: No Symptoms Cardiovascular: Reports: No Symptoms Endocrine: Reports: No Symptoms GI/Abdominal: Reports: No Symptoms : Reports: No Symptoms Musculoskeletal: Reports: No Symptoms Skin: Reports: Other (Laceration left eyebrow) Neurological: Reports: No Symptoms Psychiatric: Reports: No Symptoms Hematologic/Lymphatic: Reports: No Symptoms Immunologic: Reports: No Symptoms ED EXAM, SKIN/RASH Exam: See Below General Appearance: Alert, WD/WN, No Apparent Distress, Other (Elderly male.) Eye Exam: Left Eye: Other (left subconjunctival hemorrhage), Bilateral Eye: Papilledema Ears: Hearing Grossly Normal Throat/Mouth: Normal Inspection Head: Normocephalic, Other (Mild mildbrusing to left cheek region) Neck: Normal Inspection Respiratory/Chest: No Respiratory Distress Cardiovascular: Regular Rate, Rhythm GI/Abdominal: Soft (Male) Exam: Deferred Rectal (Males) Exam: Deferred Extremities: Normal Inspection, Normal Range of Motion, Normal Capillary Refill Neurological: Alert, Oriented, CN II-XII Intact, Normal Cognition Psychiatric: Normal Affect, Normal Mood Skin: Warm, Dry, Intact, Normal Color, Other (Note 2 cm laceration over the left eyebrow region, mild bleeding; Note midl bruise to the left cheek region.) Course - Vital Signs Text/Narrative:: [id number] The patient was seen by the ELECTROT[facility] CASTER. The laceration on the left eyebrow region was repaired. See Procedure Note. Procedure Note Laceration Repair Following verbal consent of the patient, risks, benefits, and alternatives were reviewed. The wound on the left eyebrow was prepped with Saline. Dermabond was used for wound closure. Dressing was applied. Wound care instructions were reviewed. The patient tolerated the procedure well. Last Tetanus was verified as current. EBL:Minimal The patient was given discharge instructions and he left the ER in stable condition. Last Recorded V/S: Last Vital Signs Temp 35.3 C L 08/01/20 08:18 Pulse 48 L 08/01/20 08:18 Resp 18 08/01/20 08:18 BP 121/64 08/01/20 08:18 Pulse Ox 98 08/01/20 08:18 Departure - Departure Time of Disposition: 08:55 Disposition: Home, Self-Care 01 Condition: Good Clinical Impression: Laceration of eyebrow Qualifiers: Encounter type: initial encounter Laterality: left Qualified Code(s): S01.112A - Laceration without foreign body of left eyelid and periocular area, initial encounter Fall Qualifiers: Encounter type: initial encounter Qualified Code(s): W19.XXXA - Unspecified fall, initial encounter - Discharge Information *PRESCRIPTION DRUG MONITORING PROGRAM REVIEWED*: Not Applicable *COPY OF PRESCRIPTION DRUG MONITORING REPORT IN PATIENT [place]: Not Applicable Instructions: Facial Laceration Forms: ED Department Discharge, ED Return to Work/School Form Sepsis Event Note (ED) - Evaluation Sepsis Screening Result: No Definite Risk - Focused Exam Vital Signs: Vital Signs Temp Pulse Resp BP Pulse Ox 08/01/20 08:18 35.3 C L 48 L 18 121/64 98 - Assessment/Plan Assessment:: 1)Left Eyebrow Laceration 2)S/P Fall Plan: -No additional or special care if needed for wounds closed with LiquiBand/Dermabond, however a few things are recommended to make sure the wound heals well. 1)Do NOT pick or pull at the wound or the dried adhesive. Picking the adhesive can disrupt the adhesion to the skin and cause the wound to reopen. 2)Light showering is permitted, however do not scrub, soak, or expose the wound site to prolonged wetness (including swimming) until after the film has sloughed off naturally (usually 5-10 days). 3)Do not apply any liquid, ointment, or cream medication to the wound. 4)Report any discomfort or problems to the provider -May use acetaminophen or ibuprofen as needed for pain. -Return to the ER or see your PCP if you have any concerns or feel the wound is not healing as expected
== END 2020-08-01 09:01 | disposition home or self-care (01) ==
LOC: VM.ED 08:11
DX: S01.112A Laceration without foreign body of left eyelid and periocular area, initial encounter (principal); S00.83XA Contusion of other part of head, initial encounter; H11.32 Conjunctival hemorrhage, left eye; I10 Essential (primary) hypertension; Z86.711 Personal history of pulmonary embolism; Z79.899 Other long term (current) drug therapy; Z79.01 Long term (current) use of anticoagulants; W18.31XA Fall on same level due to stepping on an object, initial encounter; Y92.009 Unspecified place in unspecified non-institutional (private) residence as the place of occurrence of the external cause
CPT/HCPCS: 12011; 99282-25; 99283

== ENCOUNTER 2025-01-15 16:17 | Emergency (ER) | payer MEDICARE, BC ==
[2025-01-15 17:15] LABS: BASOPHILS ABSOLUTE AUTO 0.0 x10^3/uL (0.0-0.2); BASOPHILS PERCENT AUTO 0.4 % (0.2-1.2); EOSINOPHILS ABSOLUTE AUTO 0.2 x10^3/uL (0.0-0.5); EOSINOPHILS PERCENT AUTO 2.2 % (0.0-4.0); IMMATURE GRAN ABSOLUTE AUTO 0.02 x10^3/uL (0.00-0.07); IMMATURE GRAN PERCENT AUTO 0.30 % (0.00-0.43); LYMPHOCYTES ABSOLUTE AUTO 1.1 x10^3/uL (1.0-4.8); LYMPHOCYTES PERCENT AUTO 16.4 % (25.0-50.0); MONOCYTES ABSOLUTE AUTO 0.7 x10^3/uL (0.0-0.8); MONOCYTES PERCENT AUTO 10.6 % (2.0-11.0); NEUTROPHILS ABSOLUTE AUTO 4.8 x10^3/uL (1.8-7.7); NEUTROPHILS PERCENT AUTO 70.1 % (50.0-80.0); PLATELET COUNT,PLT 230 x10^3/uL (130-400); RED BLOOD CELL COUNT 3.72 x10^6/uL (4.5-6.0); WHITE BLOOD CELL COUNT,WBC 6.8 x10^3/uL (4.0-10.0)
[2025-01-15 17:34] LABS: INR 1.9 (0.9-1.1); PTT,PARTIAL THROMBOPLSTIN TIME 41.0 SEC (23.5-33.2)
== END 2025-01-15 17:54 | disposition home or self-care (01) ==
LOC: VM.ED 16:17
DX: S80.12XA Contusion of left lower leg, initial encounter (principal); S90.02XA Contusion of left ankle, initial encounter; I10 Essential (primary) hypertension; Z79.899 Other long term (current) drug therapy; Z79.01 Long term (current) use of anticoagulants; W01.198A Fall on same level from slipping, tripping and stumbling with subsequent striking against other object, initial encounter
CPT/HCPCS: 36415; 70450; 73590-LT; 73610-LT; 85025; 85610; 85730; 99284